=== PATIENT | female | born 1985 | race Caucasian/White ===

== ENCOUNTER → 2017-02-03 | Outpatient (CLI) | payer BC ==
[~2017-02-03] MED LIST: CETICHW4 PO; OXYC5TAB PO; PRENTAB26 PO; THY/30 PO; THYR60TA10
== END | disposition home or self-care (01) ==
LOC: C.PAPS 10:35
PROVIDERS: ATTEND Obstetrics & Gynecology
DX: Z01.419 Encounter for gynecological examination (general) (routine) without abnormal findings (principal)

== ENCOUNTER 2024-09-03 11:55 | Inpatient (IN) ==
--- NOTE | 2024-09-03 12:35 | Emergency Department Note ---
ED Provider Note History of Present Illness Chief Complaint: Abdominal Pain Stated Complaint: ABD PAIN, FATIGUE Time Seen by Provider: 09/03/24 12:13 Source: patient Mode of arrival: ambulatory Limitations: no limitations Patient is a 38-year-old female who presents to the emergency department with complaints of right sided abdominal pain. Patient states that she believes it may be muscular but also notes that she has had some intermittent nausea this morning and has not had a bowel movement since last night. Patient notes that the pain is in her right upper quadrant and radiates down into her right lower quadrant. Patient denies any history of kidney stones and denies any urinary symptoms. Home Medications Medication Instructions Recorded Confirmed Type cetirizine 10 mg tablet (Zyrtec) 10 mg PO PM 06/10/19 09/03/24 History levonorgestrel 21 mcg/24 hr (up to 1 device intrauterine .USE 06/10/19 09/03/24 History 8 years) 52 mg intrauterine device DIRECTED. #1 ea lisinopril 30 mg tablet (Zestril) 5 mg PO PM 06/10/19 09/03/24 History duloxetine 20 mg capsule,delayed 60 mg PO QAM 08/01/19 09/03/24 History release (Cymbalta) CBD 25 mg PO PM 08/27/22 09/03/24 History lifitegrast [Xiidra] 1 drp ophthalmic (eye) BID 08/27/22 09/03/24 History loteprednol etabonate [Eysuvis] 1 drp ophthalmic (eye) BID 08/27/22 09/03/24 History omega-3 acid ethyl esters 2,500 mg PO QAM 08/27/22 09/03/24 History dextroamphetamine-amphetamine ER 37.5 mg PO QAM 05/18/24 09/03/24 History 37.5 mg capsule, 3 bead, ext rel 24hr (Mydayis) Allergies Allergy/AdvReac Type Severity Reaction Status Date / Time hydrochlorothiazide AdvReac Intermediate Photosensit Verified 09/04/24 16:50 ivity SUSHI Allergy Mild RASH Uncoded 09/04/24 14:09 Past Med/Surg History Problem List (Updated 09/04/24 @ 14:14 by Mikhail Mora MD) Encounter for pre-operative examination Right ureteral stone (Acute) Urinary tract infection Hydronephrosis with obstructing calculus (Acute) Pelvic pressure in female IUD strings lost Breast discharge Hirsutism Depression Hypothyroidism IUD (intrauterine device) in place Mirena 04/2019 Hypertension Medical History Varicella Abnormal uterine bleeding Surgical History H/O oral surgery H/O section Previous delivery affecting Family History Father Alcoholism Grandmother (Maternal) Diabetes Grandfather (Paternal) Cancer Grandmother (Paternal) Cancer Grandfather (Maternal) Cancer Uncle Cancer Colorectal cancer Denies family history of Ovarian cancer Prostate cancer Myocardial infarction Breast cancer Social History Smoking Status: Never smoker Do You Dip or Chew Tobacco: No; Hx Alcohol Use: Yes Alcohol type: wine and hard liquor Hx Substance Use: No Preferred Language: Citizen Of [place] Communication Ability: Effective [employer] Required: No Beliefs That Will Affect Care: None marital status: Current Living Situation: Spouse and Family Current Living Situation Comment: and children Other Information That Helps Us Care for You: No Feels Safe at Home: Yes Safety Concerns: Feels Safe At This Time Sunscreen Use: Yes Assistive Devices: None Physical Exam Vital Signs Vital Signs - 24 hr 09/03/24 11:56 09/03/24 12:07 09/03/24 12:32 Temperature 36.6 C Temperature Source Temporal Artery Scan Pulse Rate 94 H Pulse Rate [Left Finger] Pulse Rate from SpO2 Sensor Pulse Rhythm [Left Finger] Pulse Strength [Left Finger] Respiratory Rate 20 Respiratory Effort / Characteristics Non-Labored Respiratory Depth Normal Respiratory Pattern Blood Pressure 166/106 H Blood Pressure [Right Arm] Blood Pressure Mean 126 Blood Pressure Mean [Right Arm] Blood Pressure Position [Right Arm] Pulse Oximetry 96 96 97 Oxygen Delivery Method Room Air Room Air Room Air Sepsis Recent Fever Within 48 Hours No Sepsis New/Unexplained Change in Mental Status No Sepsis Action Taken by Nursing No Action Required 09/03/24 13:00 09/03/24 13:56 09/03/24 14:00 Temperature Temperature Source Pulse Rate 84 86 Pulse Rate [Left Finger] 82 Pulse Rate from SpO2 Sensor 89 Pulse Rhythm [Left Finger] Regular Pulse Strength [Left Finger] Normal Respiratory Rate 17 15 Respiratory Effort / Characteristics Non-Labored Spontaneous Respiratory Depth Normal Respiratory Pattern Regular Blood Pressure 171/109 H Blood Pressure [Right Arm] 134/99 Blood Pressure Mean 129 Blood Pressure Mean [Right Arm] 110 Blood Pressure Position [Right Arm] Lying Pulse Oximetry 98 98 Oxygen Delivery Method Room Air Sepsis Recent Fever Within 48 Hours Sepsis New/Unexplained Change in Mental Status Sepsis Action Taken by Nursing 09/03/24 14:30 09/03/24 15:00 09/03/24 16:06 Temperature Temperature Source Pulse Rate 85 92 H 93 H Pulse Rate [Left Finger] Pulse Rate from SpO2 Sensor 85 91 H 96 H Pulse Rhythm [Left Finger] Pulse Strength [Left Finger] Respiratory Rate 19 21 18 Respiratory Effort / Characteristics Respiratory Depth Respiratory Pattern Blood Pressure 168/102 H 154/111 H 162/108 H Blood Pressure [Right Arm] Blood Pressure Mean 124 125 126 Blood Pressure Mean [Right Arm] Blood Pressure Position [Right Arm] Pulse Oximetry 97 97 98 Oxygen Delivery Method Sepsis Recent Fever Within 48 Hours Sepsis New/Unexplained Change in Mental Status Sepsis Action Taken by Nursing 09/03/24 16:27 09/03/24 17:00 Temperature Temperature Source Pulse Rate 90 84 Pulse Rate [Left Finger] Pulse Rate from SpO2 Sensor 90 86 Pulse Rhythm [Left Finger] Pulse Strength [Left Finger] Respiratory Rate 19 13 Respiratory Effort / Characteristics Respiratory Depth Respiratory Pattern Blood Pressure 169/111 H 155/101 H Blood Pressure [Right Arm] Blood Pressure Mean 130 119 Blood Pressure Mean [Right Arm] Blood Pressure Position [Right Arm] Pulse Oximetry 95 96 Oxygen Delivery Method Sepsis Recent Fever Within 48 Hours Sepsis New/Unexplained Change in Mental Status Sepsis Action Taken by Nursing VITAL SIGNS - Vital signs and nursing notes were reviewed. GENERAL -38-year-old female appearing her stated age who is in no acute distress. Communicates well with provider and answers questions appropriately. HEAD - NC/AT. EYES - PERRL with EOMI bilaterally. Conjunctiva pink and moist with no injection noted. LUNGS - Chest wall symmetric without accessory muscle use, intercostals retractions, or central cyanosis. Breath sounds clear throughout all ramos. No wheezes, rales, or rhonchi appreciated. CARDIAC - RRR with S1/S2. No murmur, rubs, or gallops appreciated. ABDOMEN - Abdominal contour without pulsations or visible masses. Negative Christopher's or Mullins Murillo's Signs. BS normoactive all four quadrants. Increased tenderness to palpation appreciated on the right side of the abdomen. No guarding. No rebound Tenderness. No palpable masses, hepatosplenomegaly, or ascites noted. NEUROLOGIC - Sensory intact to light touch throughout. PSYCH - A&Ox3 and cooperates fully with examiner. Pt is very pleasant and interacts well with examiner. Course Administered Medications Acetaminophen (Ofirmev) 1,000 mg in 100 mls @ 400 mls/hr IV Q8H PRN PRN Reason: Pain Stop: 09/06/24 17:44 Last Infusion: 09/04/24 16:43 Dose: Infused Documented By: Admin: 09/04/24 16:28 Dose: 400 mls/hr Documented By: Infusion: 09/04/24 05:18 Dose: Infused Documented By: Admin: 09/04/24 05:03 Dose: 400 mls/hr Documented By: Infusion: 09/03/24 21:17 Dose: Infused Documented By: Admin: 09/03/24 21:02 Dose: 400 mls/hr Documented By: TANESHA Ceftriaxone Sodium (Rocephin) 2,000 mg in 50 mls @ 100 mls/hr IV Q24H DIMAS Stop: 09/11/24 14:59 Last Admin: 09/04/24 16:36 Dose: Not Given Documented By: VIOLETA Sodium Chloride (Nss) 1,000 mls @ 80 mls/hr IV .[id number] [facility] Stop: 09/05/24 08:59 Last Admin: 09/04/24 09:35 Dose: 80 mls/hr Documented By: VIOLETA Ketorolac Tromethamine (Ketorolac Tromethamine 15 Mg/Ml Vial) 15 mg IV Q6H PRN PRN Reason: Pain Stop: 09/09/24 08:50 Last Admin: 09/04/24 11:43 Dose: 15 mg Documented By: VIOLETA Oxybutynin Chloride (Oxybutynin Chloride 5 Mg Tab) 5 mg PO BID PRN PRN Reason: ureteral spasm Stop: 10/04/24 20:59 Last Admin: 09/04/24 18:37 Dose: 5 mg Documented By: VIOLETA Discontinued Medications Diatrizoate Meglumine (Diatrizoate Meglumine 30% 100ml Vial) 20 ml INSTIL UD ONE Stop: 09/04/24 14:45 Last Admin: 09/04/24 15:04 Dose: 30 ml Documented By: RICHARD Fentanyl Citrate (Fentanyl Citrate Pf 100 Mcg/2 Ml Vial) 25 mcg IV Q5M PRN PRN Reason: PACU Use Only-Pain Stop: 09/04/24 22:22 Last Admin: 09/04/24 15:48 Dose: 25 mcg Documented By: Admin: 09/04/24 15:43 Dose: 25 mcg Documented By: Admin: 09/04/24 15:38 Dose: 25 mcg Documented By: Admin: 09/04/24 15:33 Dose: 25 mcg Documented By: CLAUDIO Acetaminophen (Ofirmev) 1,000 mg in 100 mls @ 400 mls/hr IV NOW STA Stop: 09/03/24 12:46 Last Infusion: 09/03/24 13:19 Dose: Infused Documented By: Admin: 09/03/24 12:40 Dose: 400 mls/hr Documented By: YESSI Ceftriaxone Sodium (Rocephin) 2,000 mg in 50 mls @ 100 mls/hr IV NOW STA Stop: 09/03/24 16:10 Last Infusion: 09/03/24 17:14 Dose: Infused Documented By: Admin: 09/03/24 16:02 Dose: 100 mls/hr Documented By: YESSI Ioversol (Optiray 320 100ml) 94 ml IV ONCE ONE Stop: 09/03/24 13:48 Last Admin: 09/03/24 13:48 Dose: 94 ml Documented By: JLUIS Morphine Sulfate (Morphine Sulfate 4 Mg/Ml 1 Ml Carp\Vial) 4 mg IV NOW STA Stop: 09/03/24 15:19 Last Admin: 09/03/24 15:32 Dose: 4 mg Documented By: YESSI Ondansetron HCl (Ondansetron Inj 2 Mg/Ml 2 Ml Vial) 4 mg IV NOW STA Stop: 09/03/24 15:19 Last Admin: 09/03/24 15:32 Dose: 4 mg Documented By: YESSI Medical Decision Making Differential Diagnosis Differential diagnoses includes gastritis, gastroenteritis, IBS, small bowel obstruction, pancreatitis, peritonitis, constipation, abdominal abcess, among others. Medical Records Attestation: I reviewed the patient's medical records. Home Medications was personally reviewed by mo Laboratory Data 09/04/24 08:52 09/04/24 08:52 Lab Results 09/03/24 09/03/24 Range/Units 12:25 12:38 WBC 12.54 H (4.8-10.8) K/ul RBC 5.07 (4.20-5.40) M/uL Hgb 15.3 (12.0-16.0) g/dl Hct 44.2 (37.0-47.0) % MCV 87.2 (80.0-100.0) fL MCH 30.2 (25.0-34.0) pg MCHC 34.6 (32.0-36.0) g/dL RDW Std Deviation 40.1 (36.4-46.3) fL RDW Coeff of [place] 12.9 (11.5-14.5) % Plt Count 244 (130-400) K/uL MPV 10.7 (9.4-12.4) fL Immature Gran % (Auto) 0.2 % Neut % (Auto) 82.2 % Lymph % (Auto) 11.8 % [place] % (Auto) 4.9 % Eos % (Auto) 0.4 % Baso % (Auto) 0.5 % Neut # (Auto) 10.31 H (1.40-6.50) K/uL Lymph # (Auto) 1.48 (1.20-3.40) K/uL Winston # (Auto) 0.61 H (0.11-0.59) K/uL Eos # (Auto) 0.05 (0.00-0.50) K/uL Baso # (Auto) 0.06 (0.00-0.20) K/uL Immature Gran # (Auto) 0.03 (0.01-0.20) K/uL Sodium 137 (136-145) mmol/L Potassium 4.2 (3.5-5.1) mmol/L Chloride 105 (98-107) mmol/L Carbon Dioxide 25 (21-32) mmol/L Anion Gap 7 (3-11) BUN 12 (6-23) mg/dl Creatinine 0.80 (0.6-1.2) mg/dl Est Cr Clr Drug Dosing 116.3 ml/min eGFR 95.46 BUN/Creatinine Ratio 15.0 (10-20) Glucose 143 H (70-99(Fasting)) mg/dl Calcium 9.4 (8.6-10.3) mg/dl Total Bilirubin 0.5 (0.2-1.0) mg/dl AST 18 (13-39) U/L ALT 14 (7-52) U/L Alkaline Phosphatase 81 (34-104) U/L Total Protein 7.4 (6.0-8.3) gm/dl Albumin 4.6 (3.4-5.0) gm/dl Globulin 2.8 (2.5-4.0) gm/dl Albumin/Globulin Ratio 1.6 (0.9-2) Lipase 16 (11-82) U/L HCG, Qual Negative (Negative) Urine Color Yellow Urine Appearance Cloudy A (Clear) Urine pH 7.5 (4.5-7.5) Ur Specific [place] 1.011 (1.000-1.030) Urine Protein 3+ H (Negative) Urine Glucose (UA) Negative (Negative) Urine Ketones Negative (Negative) Urine Blood 3+ H (Negative) Urine Nitrite Negative (Negative) Urine Bilirubin Negative (Negative) Urine Urobilinogen Negative (Negative) Ur Leukocyte Esterase 3+ H (Negative) Urine WBC (Auto) >50 H (0-5) /hpf Urine RBC (Auto) >20 H (0-2) /hpf U Hyaline Cast (Auto) 3-5 H (0-2) /lpf U Epithel Cells (Auto) 0-2 (0-2) /hpf Urine Bacteria (Auto) 1+ H (None Seen) Urine Mucus Present A (None Prsent) Imaging Data Radiologist's Impression: Abdomen/Pelvis CT 09/03/24 12:32 CT OF THE ABDOMEN AND PELVIS WITH CONTRAST CLINICAL HISTORY: Right-sided abdominal pain. COMPARISON STUDY: Pelvic ultrasound May 21, 2024. TECHNIQUE: Following IV administration of 94 mL of Optiray, axial images of the abdomen and pelvis were obtained from the lung bases to the proximal femurs. Images were reviewed in the axial, sagittal, and coronal planes. IV contrast was administered without complication. Automated exposure control was utilized for the study. A dose lowering technique was utilized adhering to the principles of ALARA. CT DOSE: 1447.29 mGy.cm FINDINGS: Lung bases are unremarkable. No pneumatosis, free air or portal venous gas is present. Liver, spleen, adrenal glands and pancreas are unremarkable. There is no evidence for a bowel obstruction. The appendix is normal. Intrauterine device is in place. There is a 2.4 cm left ovarian cyst. Severe right hydronephrosis and moderate hydroureter is due to a 1.3 cm distal right ureteral calculus just below the level of the SI joint. There is marked right calyceal dilatation with renal cortical thinning. There is mild urothelial thickening with mild right perinephric stranding. Sensitivity for detection of left renal calculus diminished given excreted contrast. There are no bladder calculi. IMPRESSION: Severe right hydronephrosis and moderate hydroureter due to a 1.3 cm distal right ureteral calculus, as described above. Given marked right calyceal dilatation and significant cortical thinning, the findings may reflect an acute on chronic process. Urothelial thickening raises the possibility of a superimposed infectious process which could be correlated with urinalysis. ACT 112: Negative or not required by law. Electronically signed by: Gonsalo Jones M.D. 09/03/2024 2:36 PM MDM Narrative Patient is a 38-year-old female who presents to the emergency department with complaints of right sided abdominal pain. Patient states that she believes it may be muscular but also notes that she has had some intermittent nausea this morning and has not had a bowel movement since last night. Patient notes that the pain is in her right upper quadrant and radiates down into her right lower quadrant. Patient denies any history of kidney stones and denies any urinary symptoms. Patient was evaluated by myself and findings were noted in the physical exam above. Patient was ordered IV placement, lab work, urinalysis, and a CT of the abdomen pelvis. Patient was also ordered IV Tylenol for her discomfort. Patient's lab work resulted with an elevated white blood cell count of 12.54. Patient did have kidney function within normal limits with a BUN of 12 and a creatinine of 0.8. The rest of the patient's lab work was unremarkable. Patient's urinalysis however was indicative of infection patient had a 3+ protein, 3+ blood, 3+ leuks and positive bacteria in her urine. Upon reevaluation the patient states that her pain had improved with the IV Tylenol and denies any further pain medication at this time. Patient's CT of the abdomen and pelvis was interpreted by radiology to show similar severe right hydronephrosis and moderate hydroureter due to a 1.3 cm distal right ureteral calculus. I discussed these findings with the patient and the patient verbalized understanding. Patient states that she is still relatively comfortable and denies any significant pain or nausea at this time. I reached out to urology with these findings because of the patient's mild elevation in her white blood cell count and infected urine, as well as the size of the kidney stone. Urology agreed that the patient would likely need stent placement and possible procedure to help with removal or passing of the stone, however they were concerned that the patient may need to be on IV antibiotics for a day or so before they take her to the OR and suggested that the medical service be consulted for admission. I reached out to the [facility] to admit the patient to their service. I gave a report on the patient's chief complaint, current status, current vitals and all of her lab and imaging results. [facility] was agreeable to admit the patient inpatient under their service with consulting urology. Please refer to [facility] documentation for further evaluation and management of this patient. Impression Hydronephrosis with obstructing calculus, Right ureteral stone Discharge Plan Visit Data Chief Complaint: Abdominal Pain Stated Complaint: ABD PAIN, FATIGUE ED Provider: Jessica Morrissey ED Midlevel Provider: Lily Jennings Discharge Problem: Hydronephrosis with obstructing calculus, Right ureteral stone Patient Disposition: Admitted As Inpatient Discharge Instructions Interventions: ED Discharge Assessment Last Done: 09/03/24 17:16
[2024-09-03] MEDS: ACETAMINOPHEN 1,000 MG/100 ML VIAL IV STA (12:40)
[2024-09-03 13:15] LABS: Basophils # (auto) 0.06 K/uL (0.00-0.20); Basophils % (auto) 0.5 %; Eosinophils # (auto) 0.05 K/uL (0.00-0.50); Eosinophils % (auto) 0.4 %; Hematocrit (blood only) 44.2 % (37.0-47.0); Hemoglobin 15.3 g/dl (12.0-16.0); Immature Granulocytes # (auto) 0.03 K/uL (0.01-0.20); Immature Granulocytes % (auto) 0.2 %; Lymphocytes # (auto) 1.48 K/uL (1.20-3.40); Lymphocytes % (auto) 11.8 %; Mean Corpuscular Hemoglobin 30.2 pg (25.0-34.0); Mean Corpuscular Hgb Conc 34.6 g/dL (32.0-36.0); Mean Corpuscular Volume 87.2 fL (80.0-100.0); Mean Platelet Volume 10.7 fL (9.4-12.4); Monocytes # (auto) 0.61 K/uL (0.11-0.59); Monocytes % (auto) 4.9 %; Neutrophils # (auto) 10.31 K/uL (1.40-6.50); Neutrophils % (auto) 82.2 %; Platelet Count 244 K/uL (130-400); RDW Coefficient of Variation 12.9 % (11.5-14.5); RDW Standard Deviation 40.1 fL (36.4-46.3); Red Blood Count 5.07 M/uL (4.20-5.40); White Blood Count 12.54 K/ul (4.8-10.8)
[2024-09-03 13:21] LABS: Appearance Urine Cloudy (Clear); Bacteria Urine Automated 1+ (None Seen); Bilirubin Urine Negative (Negative); Blood Urine 3+ (Negative); Color Urine Yellow; Epithelial Cell Urine Auto 0-2 /hpf (0-2); Glucose Urine UA Negative (Negative); Ketones Urine Negative (Negative); Leukocyte Esterase Urine 3+ (Negative); Mucus Urine Present (None Prsent); Nitrite Urine Negative (Negative); Protein Urine 3+ (Negative); RBC Urine Automated >20 /hpf (0-2); Specific Gravity Urine 1.011 (1.000-1.030); Urobilinogen Urine Negative (Negative); WBC Urine Automated >50 /hpf (0-5); pH Urine 7.5 (4.5-7.5)
[2024-09-03 13:25] LABS: Pregnancy Test, Serum Negative (Negative)
[2024-09-03 13:36] LABS: Albumin Globulin Ratio 1.6 (0.9-2); Albumin Level 4.6 gm/dl (3.4-5.0); Bilirubin,Total 0.5 mg/dl (0.2-1.0); Calcium 9.4 mg/dl (8.6-10.3); Creatinine Clr Calc Pharmacy 116.3 ml/min; Globulin 2.8 gm/dl (2.5-4.0); Potassium 4.2 mmol/L (3.5-5.1); Total Protein 7.4 gm/dl (6.0-8.3)
[2024-09-03] MEDS: OPTIRAY 320 100ml IV ONE (13:48)
--- NOTE | 2024-09-03 14:38 | CT Scan Report ---
CT OF THE ABDOMEN AND PELVIS WITH CONTRAST CLINICAL HISTORY: Right-sided abdominal pain. COMPARISON STUDY: Pelvic ultrasound May 21, 2024. TECHNIQUE: Following IV administration of 94 mL of Optiray, axial images of the abdomen and pelvis we re obtained from the lung bases to the proximal femurs. Images were reviewed in the axial, sagittal, and coronal planes. IV contrast was administered without complication. Automated exposure control wa s utilized for the study. A dose lowering technique was utilized adhering to the principles of ALARA . CT DOSE: 1447.29 mGy.cm FINDINGS: Lung bases are unremarkable. No pneumatosis, free air or portal venous gas is present. Live r, spleen, adrenal glands and pancreas are unremarkable. There is no evidence for a bowel obstruction . The appendix is normal. Intrauterine device is in place. There is a 2.4 cm left ovarian cyst. Sever e right hydronephrosis and moderate hydroureter is due to a 1.3 cm distal right ureteral calculus jus t below the level of the SI joint. There is marked right calyceal dilatation with renal cortical thin julia. There is mild urothelial thickening with mild right perinephric stranding. Sensitivity for dete ction of left renal calculus diminished given excreted contrast. There are no bladder calculi. IMPRESSION: Severe right hydronephrosis and moderate hydroureter due to a 1.3 cm distal right ureter al calculus, as described above. Given marked right calyceal dilatation and significant cortical thin julia, the findings may reflect an acute on chronic process. Urothelial thickening raises the possibil ity of a superimposed infectious process which could be correlated with urinalysis. ACT 112: Negative or not required by law. Electronically signed by: Gonsalo Jones M.D. 09/03/2024 2:36 PM
[2024-09-03] MEDS: MoRPHine SULFATE 4 MG/ML 1 ML CARP\\VIAL IV STA (15:32)
[2024-09-03] MEDS: ONDANSETRON INJ 2 MG/ML 2 ML VIAL IV STA (15:32)
[2024-09-03] MEDS ORDERED: cefTRIAXone SODIUM 1,000 MG/50 ML BAG IV STA (15:36)
--- NOTE | 2024-09-03 15:45 | History & Physical Report ---
Date of Service September 03, 2024 Assessment & Plan (1) Hydronephrosis with obstructing calculus: Plan: New onset right sided abdominal pain, no LUTS - Admit - H/o renal calculi, asx - CTAP severe right hydronephrosis and moderate hydroureter due to 1.3 cm distal right ureteral calculus - UA w/ evidence of infection - Urology consulted in ED- Plans for stenting Appreciate urology input and recs (2) Urinary tract infection: Plan: No LUTS or dysuria, just noted that her urine was darker than normal this a.m. - UA cloudy, 3+ protein, 3+ blood, 3+ LE, WBC, RBC, hyaline cast, presence of bacteria, and mucus - CTAP revealing severe right hydronephrosis and moderate hydroureter due to 1.3 cm distal right ureteral calculus, findings may reflect acute on chronic process, urothelial thickening - Pending cx - Ceftriaxone 2g IV - continue - Zofran 4mg IV q6hr - Acetaminophen 1g IV prn once NPO (3) Hypertension: Plan: Hypertensive on arrival, elevation in BP likely secondary to pain - Lisinopril 30 mg; ? takes 5mg po - HOLD (4) Hypothyroidism: Plan: Stable per patient, no new onset of symptoms - Most recent TSH 01/02/2024 at 4.588 - Not on medical management - Recommend pt follow up outpatient regarding this (5) Depression: Plan: Stable per patient - Duloxetine 20 mg p.o. twice daily Plan Attention D/o - Dextroamphetamine-Amphetamine 37.5mg po qAM Dispo: Admit Diet: Regular, NPO at midnight VTE Prophylaxis: SCDs Code: Full Admission and Anticipated Discharge Date Admission Date: 09/03/2024 History of Present Illness Chief Complaint: Right-sided abdominal pain Primary Care Provider: Jerome Jeffrey MD 38-year-old female presenting for right-sided abdominal pain. ED course: CBC- WBC 12.54, neutrophil predominant (10.31); BMP glucose 143; hCG negative; UA cloudy, 3+ protein, 3+ blood, 3+ LE, presence of WBC, RBC, hyaline cast, 1+ bacteria, mucus; CTAP severe right hydronephrosis and moderate hydroureter due to 1.3 cm distal right ureteral calculus, right calyceal dilatation and significant cortical thinning (findings may reflect acute on chronic process), urothelial thickening raises possibility of superimposed infectious process.; Provided with Zofran, morphine, Rocephin, Tylenol in ED. Patient is a 38-year-old female PMHx HTN, hypothyroidism, and depression presenting for right-sided abdominal pain. States that the night prior to arrival she had had a large meal and had associated abdominal pain and fullness following this. Abdominal fullness started to subside, she noticed increased thirst and lingering right-sided abdominal pain. States that she woke up multiple times throughout the night that have drinks of water. However, in the morning she noted that her urine was darker than she expected since she had been drinking so much water. Initially, the pain started out as a 5/10 on the pain scale but had increased to 8/10 at maximum severity. Denies nausea/vomiting or LUTS. No fever/chills. States that she has had a renal calculi in the past, but did not know until after it was passed. Has never this happen before. Pain is currently 0/10 on the pain scale after administration of pain medications. Took all a.m. medications. Please see Dr. Soto's attestation for adjustments/additions to treatment plan. Allergies Allergy/AdvReac Type Severity Reaction Status Date / Time SUSHI Allergy Mild RASH Uncoded 05/18/24 13:04 hydroCHLOROthiazide CAPS Allergy Unknown Photosensit Uncoded 05/18/24 13:04 ivity Home Medications Medication Instructions Recorded Confirmed Type cetirizine 10 mg tablet (Zyrtec) 10 mg PO PM 06/10/19 09/03/24 History levonorgestrel 21 mcg/24 hr (up to 1 device intrauterine .USE 06/10/19 09/03/24 History 8 years) 52 mg intrauterine device DIRECTED. #1 ea lisinopril 30 mg tablet (Zestril) 5 mg PO PM 06/10/19 09/03/24 History duloxetine 20 mg capsule,delayed 60 mg PO QAM 08/01/19 09/03/24 History release (Cymbalta) CBD 25 mg PO PM 08/27/22 09/03/24 History lifitegrast [Xiidra] 1 drp ophthalmic (eye) BID 08/27/22 09/03/24 History loteprednol etabonate [Eysuvis] 1 drp ophthalmic (eye) BID 08/27/22 09/03/24 History omega-3 acid ethyl esters 2,500 mg PO QAM 08/27/22 09/03/24 History dextroamphetamine-amphetamine ER 37.5 mg PO QAM 05/18/24 09/03/24 History 37.5 mg capsule, 3 bead, ext rel 24hr (Mydayis) Past Med/Surg History Problem List Right ureteral stone Urinary tract infection Hydronephrosis with obstructing calculus Pelvic pressure in female IUD strings lost Breast discharge Hirsutism Depression Hypothyroidism IUD (intrauterine device) in place Mirena 04/2019 Hypertension Medical History Varicella Abnormal uterine bleeding Surgical History H/O oral surgery H/O section Previous delivery affecting Family History Father Alcoholism Grandmother (Maternal) Diabetes Grandfather (Paternal) Cancer Grandmother (Paternal) Cancer Grandfather (Maternal) Cancer Uncle Cancer Colorectal cancer Denies family history of Ovarian cancer Prostate cancer Myocardial infarction Breast cancer Social History Smoking Status: Never smoker Do You Dip or Chew Tobacco: No; Hx Substance Use: No Preferred Language: Thai Communication Ability: Effective marital status: Current Living Situation: Spouse Feels Safe at Home: Yes Sunscreen Use: Yes Review of Systems Review of Systems: All systems reviewed & are unremarkable except as noted in Subjective Physical Exam Physical Exam: General: No acute distress Skin: Warm and dry Head: Normocephalic, atraumatic Eyes: PERRL, conjunctivae clear, sclera non-icteric ENT: External ear and ear canal without swelling; nose atraumatic; good dentition Neck: Supple, no LAD Cardio: RRR, no M/G/R, S1 and S2 normal Resp: No respiratory distress, Lungs CTA in all lobes bilaterally, no wheezes, rales, or rhonchi Abdomen: Soft, symmetric, nontender; No masses or hepatosplenomegaly MSK: No deformities, full ROM throughout; pulses palpable and equal; no edema. Neuro: Awake, alert; Sensation intact bilaterally; CN intact Psych: Appropriate mood and affect; good judgement and insight. Mother present in room at time of visit. Results & Data Results & Data Vital Signs (Past 12 Hours) Vital Signs Temp Pulse Pulse Resp BP BP Pulse Ox 09/03/24 14:30 85 19 168/102 H 97 09/03/24 14:00 86 15 171/109 H 98 09/03/24 13:56 84 09/03/24 13:00 82 17 134/99 98 09/03/24 12:32 97 09/03/24 12:07 36.6 C 94 H 20 166/106 H 96 09/03/24 11:56 96 O2 Del Method 09/03/24 14:30 09/03/24 14:00 09/03/24 13:56 09/03/24 13:00 Room Air 09/03/24 12:32 Room Air 09/03/24 12:07 Room Air 09/03/24 11:56 Room Air Laboratory Results 09/03/24 12:25 Urine Culture - Pending Urine,Clean Catch 09/03/24 09/03/24 12:38 12:25 WBC 12.54 H RBC 5.07 Hgb 15.3 Hct 44.2 MCV 87.2 MCH 30.2 MCHC 34.6 RDW Std Deviation 40.1 RDW Coeff of [place] 12.9 Plt Count 244 MPV 10.7 Immature Gran % (Auto) 0.2 Neut % (Auto) 82.2 Lymph % (Auto) 11.8 [place] % (Auto) 4.9 Eos % (Auto) 0.4 Baso % (Auto) 0.5 Neut # (Auto) 10.31 H Lymph # (Auto) 1.48 [place] # (Auto) 0.61 H Eos # (Auto) 0.05 Baso # (Auto) 0.06 Immature Gran # (Auto) 0.03 Sodium 137 Potassium 4.2 Chloride 105 Carbon Dioxide 25 Anion Gap 7 BUN 12 Creatinine 0.80 Est Cr Clr Drug Dosing 116.3 eGFR 95.46 BUN/Creatinine Ratio 15.0 Glucose 143 H Calcium 9.4 Total Bilirubin 0.5 AST 18 ALT 14 Alkaline Phosphatase 81 Total Protein 7.4 Albumin 4.6 Globulin 2.8 Albumin/Globulin Ratio 1.6 Lipase 16 HCG, Qual Negative Urine Color Yellow Urine Appearance Cloudy A Urine pH 7.5 Ur Specific [place] 1.011 Urine Protein 3+ H Urine Glucose (UA) Negative Urine Ketones Negative Urine Blood 3+ H Urine Nitrite Negative Urine Bilirubin Negative Urine Urobilinogen Negative Ur Leukocyte Esterase 3+ H Urine WBC (Auto) >50 H Urine RBC (Auto) >20 H U Hyaline Cast (Auto) 3-5 H U Epithel Cells (Auto) 0-2 Urine Bacteria (Auto) 1+ H Urine Mucus Present A Diagnostic Findings Abdomen/Pelvis CT 09/03/24 12:32 CT OF THE ABDOMEN AND PELVIS WITH CONTRAST CLINICAL HISTORY: Right-sided abdominal pain. COMPARISON STUDY: Pelvic ultrasound May 21, 2024. TECHNIQUE: Following IV administration of 94 mL of Optiray, axial images of the abdomen and pelvis were obtained from the lung bases to the proximal femurs. Images were reviewed in the axial, sagittal, and coronal planes. IV contrast was administered without complication. Automated exposure control was utilized for the study. A dose lowering technique was utilized adhering to the principles of ALARA. CT DOSE: 1447.29 mGy.cm FINDINGS: Lung bases are unremarkable. No pneumatosis, free air or portal venous gas is present. Liver, spleen, adrenal glands and pancreas are unremarkable. There is no evidence for a bowel obstruction. The appendix is normal. Intrauterine device is in place. There is a 2.4 cm left ovarian cyst. Severe right hydronephrosis and moderate hydroureter is due to a 1.3 cm distal right ureteral calculus just below the level of the SI joint. There is marked right calyceal dilatation with renal cortical thinning. There is mild urothelial thickening with mild right perinephric stranding. Sensitivity for detection of left renal calculus diminished given excreted contrast. There are no bladder calculi. IMPRESSION: Severe right hydronephrosis and moderate hydroureter due to a 1.3 cm distal right ureteral calculus, as described above. Given marked right calyceal dilatation and significant cortical thinning, the findings may reflect an acute on chronic process. Urothelial thickening raises the possibility of a superimposed infectious process which could be correlated with urinalysis. ACT 112: Negative or not required by law. Electronically signed by: Gonsalo Jones M.D. 09/03/2024 2:36 PM Code Status & VTE Plan Code Status Full Supervising Physician Co-Signing Physician Notes Patient seen and examined, chart reviewed, case discussed with Sherin Kahn PA-C and I agree with the assessment and plan as above except as otherwise noted Labs and images reviewed Yaneth is a 38-year-old female with a past medical history of depression, IUD placement, and renal stones who presents with right-sided abdominal pain and nausea, leukocytosis, infected appearing UA, and severe right hydronephrosis due to a 1.3 cm distal right ureteral calculus. Case was reviewed by urology and recommended for medical admission. UTIs infected appearing. Creatinine is 0.80, no KYLER is present. Rocephin is continued for stone associated UTI. Urology consulted for stone management and stent evaluation due to hydro. Follow UCx. Pain adequately controlled at bedside. Patient has history of hypothyroidism and depression, continue home medications for this. Lisinopril temporarily held pending surgical evaluation. Agree with above. PG Care Time/CCT Total # of Minutes Spent Total Time Spent with Patient: Total time spent is greater than 50% in coordination of care (as documented) at patient's floor/unit and/or counseling patient: Coding Level of Care Code 20403 INT INP/OBS CARE MIN Diagnoses Hydronephrosis with obstructing calculus N13.2 Urinary tract infection N39.0 Hypertension I10 Hypothyroidism E03.9 Depression F32.9 Time Spent (min) 50
--- NOTE | 2024-09-03 15:49 | Urology Consultation ---
Date of Consultation September 03, 2024 Assessment & Plan (1) Hydronephrosis with obstructing calculus: (2) Right ureteral stone: (3) Urinary tract infection: Plan 38 yo female admitted with concern for infection and severe right hydronephrosis secondary to an obstructing stone We reviewed her CT findings, specifically severe right hydronephrosis and moderate hydroureter due to a 1.3 cm distal right ureteral calculus with marked right calyceal dilatation and significant cortical thinning, the findings may reflect an acute on chronic process. We discussed acute stone management with cystoscopy and stent placement. Ureteral stents were discussed as well as postoperative issues and pain management. We discussed the possibility of multiple procedures. Risks and benefits of each were discussed. All questions were answered. At the present time, she is stable She is not appropriately NPO. No plan for intervention tonight unless she were to become febrile or unstable. Will plan to make NPO at midnight and reassess tomorrow for possible stent placement. Recommend supportive care and antibiotic therapy. Urology to follow. Plan reviewed with Dr. Silveira, on-call urologist. History of Present Illness History of Present Illness 38-year-old female who presented to the emergency department today with complaints of right sided abdominal pain and nausea. On arrival she was af ebrile, hypertensive but otherwise stable. Labs showing a mild leukocytosis of 12.54 and normal renal function. Urinalysis with 3+ blood, 3+ LE, 1+ bacteria, negative nitrite, mucus present. Urine culture pending. CT abdomen pelvis notable for severe right hydronephrosis and moderate hydroureter due to a 1.3 cm distal right ureteral calculus and marked right calyceal dilatation and significant cortical thinning which may reflect an acute on chronic process. ED course: Morphine, Zofran, Tylenol, ceftriaxone. Patient being admitted to medicine service. CT abd pelvis- Severe right hydronephrosis and moderate hydroureter due to a 1.3 cm distal right ureteral calculus, as described above. Given marked right calyceal dilatation and significant cortical thinning, the findings may reflect an acute on chronic process. Urothelial thickening raises the possibility of a superimposed infectious process which could be correlated with urinalysis. Patient seen at bedside in the ED. Awake and resting in bed on arrival. No acute distress. She reports a hx of spontaneous stone passage. Pt had orange juice this morning around 1130AM. Allergies Allergy/AdvReac Type Severity Reaction Status Date / Time SUSHI Allergy Mild RASH Uncoded 05/18/24 13:04 hydroCHLOROthiazide CAPS Allergy Unknown Photosensit Uncoded 05/18/24 13:04 ivity Home Medications Medication Instructions Recorded Confirmed Type cetirizine 10 mg tablet PO 06/10/19 05/18/24 History levonorgestrel 21 mcg/24 hr (up to intrauterine .USE DIRECTED. #1 06/10/19 05/18/24 History 8 years) 52 mg intrauterine device ea lisinopril 30 mg tablet PO 06/10/19 05/18/24 History duloxetine 20 mg capsule,delayed 20 mg PO BID 08/01/19 05/18/24 History release (Cymbalta) CBD PO 08/27/22 05/18/24 History lifitegrast [Xiidra] ophthalmic (eye) 08/27/22 05/18/24 History loteprednol etabonate [Eysuvis] ophthalmic (eye) 08/27/22 05/18/24 History omega-3 acid ethyl esters PO 08/27/22 05/18/24 History dextroamphetamine-amphetamine ER 37.5 mg PO DAILY 05/18/24 05/18/24 History 37.5 mg capsule, 3 bead, ext rel 24hr (Mydayis) Patient History Medical History Varicella Abnormal uterine bleeding Surgical History H/O oral surgery H/O section Previous delivery affecting Family History Father Alcoholism Grandmother (Maternal) Diabetes Grandfather (Paternal) Cancer Grandmother (Paternal) Cancer Grandfather (Maternal) Cancer Uncle Cancer Colorectal cancer Denies family history of Ovarian cancer Prostate cancer Myocardial infarction Breast cancer Social History Smoking Status: Never smoker Do You Dip or Chew Tobacco: No; Hx Substance Use: No Preferred Language: Icelandic Communication Ability: Effective marital status: Current Living Situation: Spouse Feels Safe at Home: Yes Sunscreen Use: Yes Review of Systems Review of Systems: All systems reviewed & are unremarkable except as noted in HPI & below Physical Exam Constitutional: well developed and well nourished; no acute distress Respiratory: normal respiratory effort; no respiratory distress and no labored breathing Musculoskeletal: Head/Neck/Chest: normocephalic Skin: No visible rashes or lesions to exposed skin areas Neurologic: moves all extremities and awake Psychiatric: A+Ox3, euthymic affect Results & Data Vital Signs (Past 12 Hours) Vital Signs Temp Pulse Pulse Resp BP BP Pulse Ox 09/03/24 14:30 85 19 168/102 H 97 09/03/24 14:00 86 15 171/109 H 98 09/03/24 13:56 84 09/03/24 13:00 82 17 134/99 98 09/03/24 12:32 97 09/03/24 12:07 36.6 C 94 H 20 166/106 H 96 09/03/24 11:56 96 O2 Del Method 09/03/24 14:30 09/03/24 14:00 09/03/24 13:56 09/03/24 13:00 Room Air 09/03/24 12:32 Room Air 09/03/24 12:07 Room Air 09/03/24 11:56 Room Air PG Care Time/CCT Total # of Minutes Spent Total Time Spent with Patient: Total time spent is greater than 50% in coordination of care (as documented) at patient's floor/unit and/or counseling patient: Coding Level of Care Code 09730 IN/OBS CONSULT LVL 3,45M Diagnoses Hydronephrosis with obstructing calculus N13.2 Right ureteral stone N20.1 Urinary tract infection N39.0
[2024-09-03] MEDS: cefTRIAXone SODIUM 2,000 MG/50 ML BAG IV STA (16:02)
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
[2024-09-03] MEDS: ACETAMINOPHEN 1,000 MG/100 ML VIAL IV PRN (21:02)
--- NOTE | 2024-09-04 08:50 | Hospitalist Progress Note ---
Date of Service September 04, 2024 Assessment & Plan (1) Hydronephrosis with obstructing calculus: Plan: New onset right sided abdominal pain, no LUTS - Admit - H/o renal calculi, asx - CTAP severe right hydronephrosis and moderate hydroureter due to 1.3 cm distal right ureteral calculus - UA w/ evidence of infection - Urology consulted in ED- Plans for stenting Appreciate urology input and recs 09/04 -- NSS @ 80cc/hr added while NPO -- Resumed Ceftriaxone IV daily, monitor urine cx -- Pain control: Tylenol IV, added Toradol IV if needed. Antiemetics w/ zofran prn added -- NPO for cysto this morning with urology Labs added to this morning but did not have KYLER, home lisinopril on hold for now, BP 162/89 (2) Urinary tract infection: Plan: Suspected 2nd to stone above, No LUTS or dysuria, just noted that her urine was darker than normal [employer] UA w/ 3+ blood/RBC, hyaline cast, protein and + bacteria CTAP revealing severe right hydronephrosis and moderate hydroureter due to 1.3 cm distal right ureteral calculus, findings may reflect acute on chronic process, urothelial thickening Given Ceftriaxone 2gm IV in ER on admission, CONTINUED/RESUMED --Monitor urine cx/adj abx as needed Pain control as above ?needing extended course abx for stone, will f/u with urology (3) Hypertension: Plan: Hypertensive on arrival, elevation in BP likely secondary to pain Stable and suspect elevation 2nd to pain and will monitor Home lisinopril on HOLD for now, monitor to resume pending repeat labs but notable no KYLER on admission (4) Hypothyroidism: Plan: Stable per patient, no new onset of symptoms - Most recent TSH 01/02/2024 at 4.588 - Not on medical management - Recommend pt follow up outpatient regarding this (5) Depression: Plan: Stable per patient Duloxetine 20 mg p.o. twice daily Plan Attention D/o - Dextroamphetamine-Amphetamine 37.5mg po qAM DVT proph: SCDs, ambulation encouraged for now. No DVT on exam Dispo: NPO for OR this morning with Urology, Ceftriaxone IV/NSS added as well as pain control and suspect either dc this evening vs more likely tomorrow (as discussed with patient) Admission and Anticipated Discharge Date Admission Date: September 03, 2024 Supervising Physician Co-Signing Physician Notes The patient was not seen by me. The chart was reviewed. Case discussed with DONIS Marques. Agree with assessment and plan Subjective Evaluated this morning, resting in bed. Comfortable at this time, pain to her RIGHT flank. Discussed tylenol but also added toradol if needed. IVF added while NPO, passing gas. Urinating without issue. No fever/chills, no chest pain, shortness of breath. For the OR for cystoscopy today, will monitor urine cx and likely dc in AM unless feeling great/wanting to leave this evening. Questions/concerns addressed at this time. Physical Exam 2 Physical Exam: General: 38yo female resting in bed,, slightly uncomfortable moving around in bed but NAD. HEENT: head atraumatic, normocephalic, mm slightly dry, trachea midline Resp: even/unlabored, no w/c/r, on room air 97% CV: RRR, no significant m/r/g, no pitting edema GI: +BS, soft/slight distension, nontender : +RIGHT CVA tenderness MSK/Neuro: nonfocal, answering questions appropriately, not confused Psych:AOX3, cooperative with exam Results & Data Results & Data Vital Signs (Past 12 Hours) Vital Signs Temp Pulse Resp BP Pulse Ox O2 Del Method 09/04/24 07:31 36.6 C 83 16 162/89 H 97 Room Air 09/03/24 21:34 37.2 C 104 H 18 161/90 H 97 Room Air Laboratory Results 09/03/24 12:38 09/03/24 12:38 Diagnostic Findings Abdomen/Pelvis CT 09/03/24 12:32 CT OF THE ABDOMEN AND PELVIS WITH CONTRAST CLINICAL HISTORY: Right-sided abdominal pain. COMPARISON STUDY: Pelvic ultrasound May 21, 2024. TECHNIQUE: Following IV administration of 94 mL of Optiray, axial images of the abdomen and pelvis were obtained from the lung bases to the proximal femurs. Images were reviewed in the axial, sagittal, and coronal planes. IV contrast was administered without complication. Automated exposure control was utilized for the study. A dose lowering technique was utilized adhering to the principles of ALARA. CT DOSE: 1447.29 mGy.cm FINDINGS: Lung bases are unremarkable. No pneumatosis, free air or portal venous gas is present. Liver, spleen, adrenal glands and pancreas are unremarkable. There is no evidence for a bowel obstruction. The appendix is normal. Intrauterine device is in place. There is a 2.4 cm left ovarian cyst. Severe right hydronephrosis and moderate hydroureter is due to a 1.3 cm distal right ureteral calculus just below the level of the SI joint. There is marked right calyceal dilatation with renal cortical thinning. There is mild urothelial thickening with mild right perinephric stranding. Sensitivity for detection of left renal calculus diminished given excreted contrast. There are no bladder calculi. IMPRESSION: Severe right hydronephrosis and moderate hydroureter due to a 1.3 cm distal right ureteral calculus, as described above. Given marked right calyceal dilatation and significant cortical thinning, the findings may reflect an acute on chronic process. Urothelial thickening raises the possibility of a superimposed infectious process which could be correlated with urinalysis. ACT 112: Negative or not required by law. Electronically signed by: Gonsalo Jones M.D. 09/03/2024 2:36 PM PG Care Time/CCT Total # of Minutes Spent Total Time Spent with Patient: Total time spent is greater than 50% in coordination of care (as documented) at patient's floor/unit and/or counseling patient: Coding Level of Care Code 57965 SUB INP/OBS CARE 3/50MIN Diagnoses Hydronephrosis with obstructing calculus N13.2 Urinary tract infection N39.0 Hypertension I10 Hypothyroidism E03.9 Depression F32.9
[2024-09-04] MEDS ORDERED: ONDANSETRON INJ 2 MG/ML 2 ML VIAL IV PRN (09:06)
[2024-09-04 09:21] LABS: Hematocrit (blood only) 41.6 % (37.0-47.0); Mean Corpuscular Hemoglobin 29.9 pg (25.0-34.0); Mean Corpuscular Hgb Conc 33.7 g/dL (32.0-36.0); Mean Corpuscular Volume 88.7 fL (80.0-100.0); Mean Platelet Volume 10.2 fL (9.4-12.4); Platelet Count 209 K/uL (130-400); RDW Coefficient of Variation 12.7 % (11.5-14.5); RDW Standard Deviation 41.1 fL (36.4-46.3); Red Blood Count 4.69 M/uL (4.20-5.40); White Blood Count 8.78 K/ul (4.8-10.8)
[2024-09-04] MEDS: SODIUM CHLORIDE 0.9% 1,000 ML IV SCH (09:35)
[2024-09-04 09:41] LABS: BUN Creatinine Ratio 15.7 (10-20); Calcium 8.9 mg/dl (8.6-10.3); Creatinine Clr Calc Pharmacy 97.9 ml/min; Potassium 4.2 mmol/L (3.5-5.1)
--- NOTE | 2024-09-04 10:19 | Urology Progress Note ---
Date of Service September 04, 2024 Assessment & Plan (1) Right ureteral stone: (2) Hydronephrosis with obstructing calculus: Plan 38 yo female admitted with concern for infection and severe right hydronephrosis secondary to an obstructing stone Afebrile, hypertensive otherwise stable vitals Labs today show no leukocytosis and normal renal function Urine culture pending We again reviewed her CT findings, specifically severe right hydronephrosis and moderate hydroureter due to a 1.3 cm distal right ureteral calculus with marked right calyceal dilatation and significant cortical thinning, the findings may reflect an acute on chronic process. We discussed acute stone management with cystoscopy and stent placement. Ureteral stents were discussed as well as postoperative issues and pain management. We discussed the possibility of multiple procedures. Risks and benefits of each were discussed. All questions were answered. Will plan to proceed to OR today for cystoscopy, right retrograde pyelogram, right ureteral stent placement, possible ureteroscopy, laser lithotripsy/stone treatment depending on findings with Dr. Valadez. Risks and benefits to be reviewed with patient by Dr. Valadez. Keep NPO. She is covered with scheduled IV ceftriaxone. Urology to follow. Admission and Anticipated Discharge Date Admission Date: September 03, 2024 Subjective Pt seen at bedside this AM Awake and resting in bed on arrival No acute distress Has been NPO Review of Systems Constitutional: as per Subjective / HPI Genitourinary: as per Subjective / HPI Physical Exam Constitutional: no acute distress Respiratory: no respiratory distress and no labored breathing Neurologic: moves all extremities and awake Psychiatric: A+Ox3, euthymic affect Results & Data Vital Signs (Past 12 Hours) Vital Signs Temp Pulse Resp BP Pulse Ox O2 Del Method 09/04/24 07:31 36.6 C 83 16 162/89 H 97 Room Air PG Care Time/CCT Total # of Minutes Spent Total Time Spent with Patient: Total time spent is greater than 50% in coordination of care (as documented) at patient's floor/unit and/or counseling patient: Coding Level of Care Code 51290 SUB INP/OBS CARE 2/35MIN Diagnoses Right ureteral stone N20.1 Hydronephrosis with obstructing calculus N13.2
[2024-09-04] MEDS: KETOROLAC TROMETHAMINE 15 MG/ML VIAL IV PRN (11:43)
[2024-09-04] MEDS ORDERED: PROPOFOL IV EMULSION 10 MG/ML 20 ML VIAL IV ONE (14:12)
[2024-09-04] MEDS ORDERED: fentaNYL citrate PF 100 MCG/2 ML VIAL ONE (14:12)
[2024-09-04] MEDS ORDERED: KETOROLAC 30 MG/ML VIAL ONE ×2 (14:12→15:02)
[2024-09-04] MEDS ORDERED: MIDAZOLAM HCL 1 MG/ML 2ML VIAL ONE (14:12)
[2024-09-04] MEDS ORDERED: LIDOCAINE 2% 2 ML VIAL/AMP(20MG/ML) INFIL ONE (14:12)
[2024-09-04] MEDS ORDERED: ONDANSETRON INJ 2 MG/ML 2 ML VIAL ONE (14:12)
--- NOTE | 2024-09-04 14:14 | Anesthesiology Consultation ---
Date of Service September 04, 2024 Assessment & Plan (1) Encounter for pre-operative examination: Chart Review Chart Review: Acceptable Risk for Surgery History Surgery Operation Date: 09/04/24 09:10 Proposed Procedures p Cystoscopy Right Retrograde Pyelogram and Stent Placement, Possible Ureteroscopy Laser Lithotripsy - Jerome Valadez MD Height/Weight Height: 5 ft 2 in Weight: 97 kg Allergies Allergy/AdvReac Type Severity Reaction Status Date / Time hydroCHLOROthiazide CAPS Allergy Intermediate Photosensit Uncoded 09/04/24 14:09 ivity SUSHI Allergy Mild RASH Uncoded 09/04/24 14:09 Medications Home Medications Medication Instructions Recorded Confirmed Last Taken cetirizine 10 mg tablet (Zyrtec) 10 mg PO PM 06/10/19 09/03/24 Unknown levonorgestrel 21 mcg/24 hr (up to 1 device intrauterine .USE 06/10/19 09/03/24 Unknown 8 years) 52 mg intrauterine device DIRECTED. #1 ea lisinopril 30 mg tablet (Zestril) 5 mg PO PM 06/10/19 09/03/24 Unknown duloxetine 20 mg capsule,delayed 60 mg PO QAM 08/01/19 09/03/24 09/03/24 release (Cymbalta) CBD 25 mg PO PM 08/27/22 09/03/24 Unknown lifitegrast [Xiidra] 1 drp ophthalmic (eye) BID 08/27/22 09/03/24 Unknown loteprednol etabonate [Eysuvis] 1 drp ophthalmic (eye) BID 08/27/22 09/03/24 Unknown omega-3 acid ethyl esters 2,500 mg PO QAM 08/27/22 09/03/24 Unknown dextroamphetamine-amphetamine ER 37.5 mg PO QAM 05/18/24 09/03/24 09/03/24 37.5 mg capsule, 3 bead, ext rel 24hr (Mydayis) Active Medications Generic Name Dose Route Start Last Admin Trade Name Freq PRN Reason Stop Dose Admin Acetaminophen 1,000 mg in 100 mls @ 400 mls/hr 09/03/24 17:45 09/04/24 05:18 Ofirmev IV 09/06/24 17:44 Infused Q8H PRN Infusion Pain Sodium Chloride 1,000 mls @ 80 mls/hr 09/04/24 09:00 09/04/24 09:35 Nss IV 09/05/24 08:59 80 mls/hr .[id number] DIMAS Administration Ketorolac Tromethamine 15 mg 09/04/24 08:51 09/04/24 11:43 Ketorolac Tromethamine 15 Mg/Ml Vial IV 09/09/24 08:50 15 mg Q6H PRN Administration Pain Past Medical History Medical History Varicella Abnormal uterine bleeding Past Family History Family History Father Alcoholism Grandmother (Maternal) Diabetes Grandfather (Paternal) Cancer Grandmother (Paternal) Cancer Grandfather (Maternal) Cancer Uncle Cancer Colorectal cancer Denies family history of Ovarian cancer Prostate cancer Myocardial infarction Breast cancer Past Surgical History Surgical History H/O oral surgery H/O section Previous delivery affecting Social History Smoking Status: Never smoker Do You Dip or Chew Tobacco: No Hx Alcohol Use: Yes Alcohol type: wine and hard liquor alcohol intake frequency: holidays/special occasions only Hx Substance Use: No Physical Exam Vital Signs Last Vital Signs Temp 36.6 C 09/04/24 07:31 Pulse 83 09/04/24 07:31 Resp 16 09/04/24 07:31 BP 162/89 H 09/04/24 07:31 Pulse Ox 97 09/04/24 07:31 O2 Del Method Room Air 09/04/24 07:31 Testing Laboratory Results 09/04/24 08:52 09/04/24 08:52 Urine Color Yellow 09/03/24 12:25 Urine Appearance Cloudy (Clear) A 09/03/24 12:25 Urine pH 7.5 (4.5-7.5) 09/03/24 12:25 Ur Specific [place] 1.011 (1.000-1.030) 09/03/24 12:25 Urine Protein 3+ (Negative) H 09/03/24 12:25 Urine Glucose (UA) Negative (Negative) 09/03/24 12:25 Urine Ketones Negative (Negative) 09/03/24 12:25 Urine Nitrite Negative (Negative) 09/03/24 12:25 Ur Leukocyte Esterase 3+ (Negative) H 09/03/24 12:25 Urine WBC (Auto) >50 /hpf (0-5) H 09/03/24 12:25 Urine RBC (Auto) >20 /hpf (0-2) H 09/03/24 12:25 U Hyaline Cast (Auto) 3-5 /lpf (0-2) H 09/03/24 12:25 U Epithel Cells (Auto) 0-2 /hpf (0-2) 09/03/24 12:25 Urine Bacteria (Auto) 1+ (None Seen) H 09/03/24 12:25 09/03/24 12:25 Urine Culture - Preliminary Urine,Clean Catch Pin-point growth present, reincubating. 09/03 preg test negative
[2024-09-04] MEDS ORDERED: PROMETHAZINE HCL 6.25 MG in SODIUM CHLORIDE 0.9% 50 ML IV PRN (14:22)
[2024-09-04] MEDS ORDERED: LABETALOL HCL IV 5 MG/ML 20ML IV PRN (14:22)
[2024-09-04] MEDS ORDERED: ATROPINE SULFATE 0.1 MG/ML 10ML SYR IV PRN (14:22)
[2024-09-04] MEDS: DIATRIZOATE MEGLUMINE 30% 100ML VIAL INSTIL ONE (15:04)
--- NOTE | 2024-09-04 15:08 | Operative Report ---
PG Post Operative Report Pre & Post Diagnosis Operation Date: 09/04/24 09:10 Pre-Op Diagnosis: 1. Hydronephrosis with obstructing calculus 2. Right ureteral stone 3. Urinary tract infection Post-Op Diagnosis: 1. Hydronephrosis with obstructing calculus 2. Right ureteral stone 3. Urinary tract infection I identified the patient and participated in the time-out.: Yes Procedure Operation Date: 09/04/24 09:10 Actual Procedures p Cystoscopy, Right Ureteroscopy, Laser Lithotripsy and Stent Placement (Not Applicable) - Jerome Valadez MD Surgeon Jerome Valadez MD Manager Diversity none Estimated Blood Loss 0 Findings Consistent with Post-Op Diagnosis Specimens none Description of Procedure The patient was identified in the preoperative holding area, appropriate informed consents were reviewed and completed and the patient was transferred to the operative suite. Upon arrival, appropriate antibiotics and anesthesia were administered and the patient was placed in dorsal lithotomy position and prepped and draped in sterile fashion. We in the case I passed 21 Croatian cystoscope with 30 degree lens per inspection revealed a healthy appearing bladder with quite cloudy urine. Right and left ureteral orifices were in orthotopic position. I washed out the bladder first and then turned my attention of the right UO. I attempted to cannulate this with a sensor wire and a 5 Croatian open-ended catheter. The advanced approximately 8 cm of the ureter before encountering resistance at the level of an opacity consistent with obstructing distal stone. I suspect the stone has been there for some time as I was unable to navigate a sensor wire around the stone. I exchanged it for a zip wire and also could not navigate this around the stone. I attempted to pass contrast and no contrast was moving around the stone. Given the lack of success, I advanced a semirigid ureteroscope into the ureter and saw the distal end of the stone. There is edematous tissue distal to the stone blocking into position and no lumen around the perimeter of the stone was visible. I used a 200 m laser fiber to begin fragmenting the stone with the hope that could create enough space to be able to pass a wire and placed a stent. I did treat about two thirds of the stone before I was able to visualize the lumen lateral to the stone. I then passed a sensor wire up to the level of the kidney. I did advance a 5 Croatian open-ended catheter into the proximal ureter and opacified the upper aspect of the collecting system I proceeded to place a 6 Croatian by 24 cm double-J stent to good curl in the kidney as well as the bladder. There is still stone remaining, however given her cloudy urine and longstanding obstruction, I think we should decompress her and allow her to recover before proceeding with the completion ureteroscopy/laser lithotripsy I attest to the content of the Intraoperative Record and any orders documented therein. Any exceptions are noted below.
[2024-09-04] MEDS: fentaNYL citrate PF 100 MCG/2 ML VIAL IV PRN (15:33)
--- NOTE | 2024-09-04 15:40 | Anesthesiology Progress Note ---
Date of Service September 04, 2024 Anesthesia Post Procedure Vital Signs Vital Signs: Temp Pulse Pulse Pulse Resp BP BP 09/04/24 15:30 79 16 171/98 H 09/04/24 15:20 36.0 C L 80 16 163/105 H 09/04/24 14:12 36.9 C 84 18 159/98 H 09/04/24 07:31 36.6 C 83 16 162/89 H 09/03/24 21:34 37.2 C 104 H 18 161/90 H 09/03/24 17:46 36.8 C 80 18 157/101 H 09/03/24 17:00 84 13 155/101 H 09/03/24 16:27 90 19 169/111 H 09/03/24 16:06 93 H 18 162/108 H Pulse Ox O2 Del Method O2 Flow Rate 09/04/24 15:30 96 Room Air 09/04/24 15:20 100 Oxymask 5 09/04/24 14:12 96 Room Air 09/04/24 07:31 97 Room Air 09/03/24 21:34 97 Room Air 09/03/24 17:46 97 Room Air 09/03/24 17:00 96 09/03/24 16:27 95 09/03/24 16:06 98 Pain Intensity Right Abdomen: Pain Intensity: 1 Transfer of Care Handoff Completed per policy Notes Mental Status: alert / awake / arousable Patient Amnestic to Procedure: Yes Nausea / Vomiting: adequately controlled Pain: adequately controlled Airway Patency, RR, SpO2: stable & adequate BP & HR: stable & adequate Hydration State: stable & adequate Anesthetic Complications: no major complications apparent
--- NOTE | 2024-09-04 16:24 | Fluoroscopy Report ---
FL retrograde includes kub CLINICAL HISTORY: CYSTO COMPARISON STUDY: CT of the abdomen and pelvis September 03, 2024. FLUOROSCOPY TIME: 73.8 seconds. Ka,r: 20.38 mGy FLUOROSCOPIC IMAGES: 2 FINDINGS: Fluoroscopy was provided during cystoscopy, lithotripsy and right ureteral stent placement. The stent is well-positioned. Intrauterine device is incidentally noted. A density adjacent to the d istal aspect of the stent may reflect a calculus/fragment. IMPRESSION: Fluoroscopy provided during cystoscopy, lithotripsy and right ureteral stent placement. ACT 112: Negative or not required by law. Electronically signed by: Gonsalo Jones M.D. 09/04/2024 4:23 PM
[2024-09-04] MEDS: cefTRIAXone SODIUM 2,000 MG/50 ML BAG IV SCH (16:36)
[2024-09-04] MEDS: oxyBUTYnin chloride 5 MG TAB PO PRN (18:37)
[2024-09-04] MEDS: MoRPHine SULFATE 2 MG/ML CARP IV PRN (20:55)
[2024-09-04] MEDS: CETIRIZINE HCL 10 MG TABLET PO SCH (20:55)
[2024-09-04 23:00] VITALS: RESP 16
[2024-09-05 07:39] LABS: Hematocrit (blood only) 39.2 % (37.0-47.0); Hemoglobin 13.2 g/dl (12.0-16.0); Mean Corpuscular Hemoglobin 29.7 pg (25.0-34.0); Mean Corpuscular Hgb Conc 33.7 g/dL (32.0-36.0); Mean Corpuscular Volume 88.3 fL (80.0-100.0); Mean Platelet Volume 10.4 fL (9.4-12.4); Platelet Count 198 K/uL (130-400); RDW Coefficient of Variation 12.4 % (11.5-14.5); RDW Standard Deviation 40.5 fL (36.4-46.3); Red Blood Count 4.44 M/uL (4.20-5.40); White Blood Count 20.57 K/ul (4.8-10.8)
[2024-09-05 07:41] LABS: BUN Creatinine Ratio 18.2 (10-20); Calcium 8.4 mg/dl (8.6-10.3); Creatinine Clr Calc Pharmacy 105.6 ml/min; Magnesium 1.9 mg/dl (1.7-2.4); Potassium 4.3 mmol/L (3.5-5.1)
--- NOTE | 2024-09-05 08:16 | Hospitalist Progress Note ---
Date of Service September 05, 2024 Assessment & Plan (1) Hydronephrosis with obstructing calculus: Plan: New onset right sided abdominal pain, no LUTS CTAP w/ severe RIGHT hydronephrosis and moderate hydroureter, 2nd to 1.3cm distal RIGHT ureteral calculus UA positive, placed on Ceftriaxone IV, IVF x 24 hrs and made NPO with pain control and Urology consulted, Dr Valadez s/p Cystoscopy, Right Ureteroscopy, Laser Lithotripsy and Stent Placement (Not Applicable) - Jerome Valadez MD Per OP report, suspected stone there for some time (see report), did need treat 2/3 of stone before was able to visualize lumen lateral to the stone. There is still stone remaining, however given cloudy urine and longstanding obstruction, thought better to let her decompress and allow her to recover before proceeding with completion ureteroscopy/laser lithotripsy. -- Discussed w/ provider and given long standing presence, could have infected stone, will need definitive tx outpatient WBC elevation 20k, ?2nd in intervention/pain, has been afebrile. Remains on Ceftriaxone Urine cx pin-point growth re-incubating and will monitor Pain control: tylenol, toradol IV (no KYLER), morphine for breakthrough added (needed 1 dose last evening). Oxybutytnin/pyridium available and started Flomax and strain order for urine (reports has been passing fragments) Discussed with Urology and preference for ongoing pain control and IV antibiotics overnight and finalized urine cx and can plan for dc in AM tomorrow if stable/improved Urology outpt f/u to be arranged and will confirm prior to dc (2) Urinary tract infection: Plan: As above, suspect 2nd to longstanding stone UA+, Urine cx pin-point growth and will continue Ceftriaxone 2gm (given +CVA tenderness) and monitor final cx/sensitivities prior to dc. Will need outpt f/u for stone tx as outlined (3) Hypertension: Plan: Hypertensive on arrival, elevation in BP likely secondary to pain Lisinopril on hold while NPO BP stable at present, elevations w/ pain control 130/85 and lisinopril ordered to resume for AM (4) Hypothyroidism: Plan: Stable per patient, no new onset of symptoms - Most recent TSH 01/02/2024 at 4.588 - Not on medical management - Recommend pt follow up outpatient regarding this (5) Depression: Plan: Stable per patient Duloxetine resumed (6) Vitamin D deficiency: Plan: checked given stones/paresthesias w/ nerve testing (TSH prior elevated w/ normal T4 in December, can be f/u with PCP and repeated w/ T3 if felt needed, danial w/ stones) Vit D LOW 14.6, PO replacement started and will plan to continue at dc and have outpatient follow up. Parathyroid hormone w/ AM labs to ensure appropriately elevated Plan Attention D/o - Dextroamphetamine-Amphetamine 37.5mg po qAM on hold for now, stable off for time being DVT proph: SCDs, ambulation encouraged. Low risk Dispo: continued inpatient stay on IV abx/monitoring cx and pain control with hopeful dc in AM if finalized and can plan to send on short course NSAIDs w/ PO abx based on sensitivities. Urology f/u for stone tx as discussed and likely would continue abx until completed Admission and Anticipated Discharge Date Admission Date: September 03, 2024 Supervising Physician Co-Signing Physician Notes The patient was not seen by me. The chart was reviewed. Case discussed with DONIS Marques. Agree with assessment and plan Subjective Eval this morning, sitting up in bed. Pain to R flank/CVA rated 4-5/10, improving since last evening. Getting dose toradol as reported improvement with such prior. Oxybutynin/pyridium available, started flomax this morning. Is passing urine, reports fragments, discussed straining urine (cup in room). Discussed OR report/laser and reported tx of two thirds of stone but possible stone infected and will require additional treatment and possible continued abx until outpt f/u arranged. Discussed WBC elevation, no fever but urine cx still pending and discussed monitoring final and possible dc in AM if pain continued improvement . No fever/chills, chest pain or shortness of breath. Appetite alright. Does have issues w/ withdrawal sx off her cymbalta and has been resumed. remains off ADHD medications and she reports not having issues off these for a day or two and will remain on hold. Vit D level low/replacement ordered as discussed. Discussed case w/ Urology who rec another day of IV abx and will plan for dc in AM pending repeat labs/final cultures and have outpt follow up with urology. Physical Exam Physical Exam: General: 38yo female resting in bed,, slightly uncomfortable moving around in b ed but NAD. HEENT: head atraumatic, normocephalic, mm slightly dry, trachea midline Resp: even/unlabored, no w/c/r, on room air 97% CV: RRR, no significant m/r/g, no pitting edema GI: +BS, soft/slight distension, nontender : +RIGHT CVA tenderness MSK/Neuro: nonfocal, answering questions appropriately, not confused Psych:AOX3, cooperative with exam Results & Data Results & Data Vital Signs (Past 12 Hours) Vital Signs Temp Pulse Resp BP Pulse Ox O2 Del Method 09/05/24 07:47 37.0 C 93 H 16 130/85 94 Room Air 09/04/24 22:59 37.0 C 87 16 163/97 H 94 Room Air PG Care Time/CCT Total # of Minutes Spent Total Time Spent with Patient: Total time spent is greater than 50% in coordination of care (as documented) at patient's floor/unit and/or counseling patient: Coding Level of Care Code 10416 SUB INP/OBS CARE 3/50MIN Diagnoses Hydronephrosis with obstructing calculus N13.2 Urinary tract infection N39.0 Hypertension I10 Hypothyroidism E03.9 Depression F32.9 Vitamin D deficiency E55.9
[2024-09-05] MEDS: DULoxetine HCL 60 MG CAP PO SCH (09:37)
[2024-09-05] MEDS: TAMSULOSIN HCL 0.4 MG CAP PO SCH (09:43)
[2024-09-05] MEDS: CHOLECALCIFEROL 25 MCG (1000 UNITS) TAB PO SCH (09:43)
[2024-09-05] MEDS: INFLUENZA VACC TS2024-25(6m+)/PF (IIV3) 0.5mL Syr IM ONE (10:10)
--- NOTE | 2024-09-05 10:37 | Urology Progress Note ---
Date of Service September 05, 2024 Assessment & Plan (1) Right ureteral stone: (2) Hydronephrosis with obstructing calculus: Plan POD #1 s/p Cystoscopy, Right Ureteroscopy, Laser Lithotripsy and Stent Placement Doing well today, tolerating the stent with moderate bother. Remains afebrile and hemodynamically stable Labs today show normal renal function and white count up to 20.57 (possibly from intervention/pain/?infection) - continue to trend Urine culture pending, continues on Ceftriaxone Voiding without issue Plan- Continue antibiotics and tailor as culture data becomes available Continue tamsulosin, prn pyridium, prn oxybuynin and prn analgesics for stent management We reviewed that there is still stone remaining, but due to cloudy urine and longstanding obstruction, plan is to decompress her and allow her to recover before proceeding with the completion ureteroscopy/laser lithotripsy. Will arrange outpatient follow-up with our office for continued stone management Urology will sign-off. Please call with any further questions, concerns, or changes in patient status. Admission and Anticipated Discharge Date Admission Date: September 03, 2024 Subjective Pt seen at bedside today Awake and resting in bed on arrival No acute distress Reports stent discomfort, but improved from yesterday Voiding without issue No fevers Review of Systems Constitutional: as per Subjective / HPI Genitourinary: as per Subjective / HPI Physical Exam Constitutional: no acute distress Respiratory: no respiratory distress and no labored breathing Neurologic: moves all extremities and awake Psychiatric: A+Ox3, euthymic affect Results & Data Vital Signs (Past 12 Hours) Vital Signs Temp Pulse Resp BP Pulse Ox O2 Del Method 09/05/24 07:47 37.0 C 93 H 16 130/85 94 Room Air 09/04/24 22:59 37.0 C 87 16 163/97 H 94 Room Air PG Care Time/CCT Total # of Minutes Spent Total Time Spent with Patient: Total time spent is greater than 50% in coordination of care (as documented) at patient's floor/unit and/or counseling patient: Coding Level of Care Code 36209 SUB INP/OBS CARE 2/35MIN Diagnoses Right ureteral stone N20.1 Hydronephrosis with obstructing calculus N13.2
[2024-09-05] MEDS: PHENAZOPYRIDINE HCL 100 MG TAB PO PRN (20:17)
[2024-09-06 06:21] LABS: BUN Creatinine Ratio 16.9 (10-20); Calcium 8.3 mg/dl (8.6-10.3); Creatinine Clr Calc Pharmacy 125.1 ml/min; Potassium 4.1 mmol/L (3.5-5.1)
[2024-09-06 07:02] LABS: Basophils # (auto) 0.05 K/uL (0.00-0.20); Basophils % (auto) 0.6 %; Eosinophils # (auto) 0.11 K/uL (0.00-0.50); Eosinophils % (auto) 1.2 %; Hematocrit (blood only) 38.3 % (37.0-47.0); Hemoglobin 13.3 g/dl (12.0-16.0); Immature Granulocytes # (auto) 0.04 K/uL (0.01-0.20); Immature Granulocytes % (auto) 0.4 %; Lymphocytes # (auto) 2.78 K/uL (1.20-3.40); Lymphocytes % (auto) 30.7 %; Mean Corpuscular Hemoglobin 30.4 pg (25.0-34.0); Mean Corpuscular Hgb Conc 34.7 g/dL (32.0-36.0); Mean Corpuscular Volume 87.6 fL (80.0-100.0); Mean Platelet Volume 10.5 fL (9.4-12.4); Monocytes # (auto) 0.88 K/uL (0.11-0.59); Monocytes % (auto) 9.7 %; Neutrophils # (auto) 5.19 K/uL (1.40-6.50); Neutrophils % (auto) 57.4 %; Platelet Count 174 K/uL (130-400); RDW Coefficient of Variation 12.6 % (11.5-14.5); RDW Standard Deviation 40.1 fL (36.4-46.3); Red Blood Count 4.37 M/uL (4.20-5.40); White Blood Count 9.05 K/ul (4.8-10.8)
[2024-09-06 07:30] LABS: Estimated Average Glucose 105 mg/dl; Hemoglobin A1C 5.3 % (4.5-5.6)
[2024-09-06 07:34] VITALS: BP 162/93; PULSE 83; TEMP 98.1; O2SAT 93
[2024-09-06] MEDS: lisinopril 10 MG TAB PO SCH (08:51)
--- NOTE | 2024-09-06 11:14 | Discharge Summary ---
Discharge Summary Date of Service September 06, 2024 Principal Dx & Hospital Course #1 = Principal Diagnosis (1) Hydronephrosis with obstructing calculus: Presented with new onset right sided abdominal pain, no LUTS - CTAP w/ severe RIGHT hydronephrosis and moderate hydroureter, 2nd to 1.3cm distal RIGHT ureteral calculus - UA positive on admission - Urology consulted > Cystoscopy, Right Ureteroscopy, Laser Lithotripsy and Stent Placement with Dr. Valadez on 09/04 > Follow-up with urology outpatient for completion ureteroscopy/laser lithotripsy - Treated with ceftriaxone while inpatient - Continue to strain urine - Discharged on Cipro 500 mg BID for 7 day total antibiotic regimen, Flomax daily, oxybutynin PRN, Pyridium PRN, and Toradol for breakthrough pain. Encouraged to use ibuprofen/Tylenol as first line pain meds (2) Urinary tract infection: As above, suspect 2nd to longstanding stone - UA+, urine culture without sensitivities - Discharged on Cipro 500 mg BID for total of 7 day antibiotic regimen - Follow-up with urology outpatient (3) Hypertension: Hypertensive on arrival, elevation in BP likely secondary to pain; stabalized - Continue lisinopril (4) Hypothyroidism: Stable per patient, no new onset of symptoms - Most recent TSH 01/02/2024 at 4.588 - Not on medical management - Recommend pt follow up outpatient regarding this (5) Depression: Stable per patient - Continue Duloxetine (6) Vitamin D deficiency: Checked given stones/paresthesias with nerve testing (TSH prior elevated with normal T4 in December, can be f/u with PCP and repeated with T3 if felt needed, danial with stones) - Vit D LOW 14.6, PO replacement started and continued on discharge Plan CODE STATUS: Full code Notes For Next Care Provider Follow-up TSH level and repeat with T3 if needed Medication Changes From Visit Ciprofloxacin 500 mg BID x 5 days Flomax daily Oxybutynin PRN Pyridium PRN Toradol PRN Vitamin D daily Admission HPI Per Admitting Provider 38-year-old female presenting for right-sided abdominal pain. ED course: CBC- WBC 12.54, neutrophil predominant (10.31); BMP glucose 143; hCG negative; UA cloudy, 3+ protein, 3+ blood, 3+ LE, presence of WBC, RBC, hyaline cast, 1+ bacteria, mucus; CTAP severe right hydronephrosis and moderate hydroureter due to 1.3 cm distal right ureteral calculus, right calyceal dilatation and significant cortical thinning (findings may reflect acute on chronic process), urothelial thickening raises possibility of superimposed infectious process.; Provided with Zofran, morphine, Rocephin, Tylenol in ED. Patient is a 38-year-old female PMHx HTN, hypothyroidism, and depression presenting for right-sided abdominal pain. States that the night prior to arrival she had had a large meal and had associated abdominal pain and fullness following this. Abdominal fullness started to subside, she noticed increased thirst and lingering right-sided abdominal pain. States that she woke up multiple times throughout the night that have drinks of water. However, in the morning she noted that her urine was darker than she expected since she had been drinking so much water. Initially, the pain started out as a 5/10 on the pain scale but had increased to 8/10 at maximum severity. Denies nausea/vomiting or LUTS. No fever/chills. States that she has had a renal calculi in the past, but did not know until after it was passed. Has never this happen before. Pain is currently 0/10 on the pain scale after administration of pain medications. Took all a.m. medications. Please see Dr. Soto's attestation for adjustments/additions to treatment plan. Discharge Exam General: No acute distress, nondiaphoretic, well-developed, well-nourished. Skin: The skin was without rashes, erythema, edema, or bruising. Cardiac: Regular rate and rhythm without murmurs gallops or rubs. Pulm: Clear to auscultation bilaterally without wheezes, rales or rhonchi. No respiratory distress. 93% on room air. Abdominal: Soft, nontender, nondistended. Bowel sounds present. No CVA tenderness bilaterally. Neuro: A&O x3. No focal neurological deficits. Discharge Plan Discharge Items Patient Disposition: Home - Self-Care Reason For Visit: HYDRONEPHROSIS, UTI Discharge Diagnosis: Kidney Stone with obstruction, UTI Goals: You have been hospitalized for an urgent problem which required surgery. During your stay at [facility], we have made an effort to correct the problem that brought you to the hospital while keeping you as comfortable as possible. Surgery and medications were used to bring your condition under control and your discharge instructions will include directions for any medications you should take after leaving the hospital. Please make sure to follow the advice of your surgeon regarding follow up with the surgeon and with your primary care provider. Activity: As commented below Non-emergency contact: Primary Care Provider and Urologist Call non-emergency contact if: you have any medication questions, your symptoms worsen, your pain is not controlled, your pain is concerning for you and you have a fever Follow-up/Referrals: Jerome Valadez MD [Physician] - (Follow-up as scheduled by urology ) Jerome Jeffrey MD [Primary Care Provider] - (Follow-up in 1-2 weeks) Diet: Heart Healthy Addtl Attending Provider Instructions: Yaneth, You were admitted to the hospital due to a large right-sided obstructing kidney stone. You were seen by urology, who performed a cystoscopy, right ureteroscopy, laser lithotripsy, and right sided stent placement. However, you will need ongoing management with repeat lithotripsy outpatient for definitive stone management. You were also found to have an acute urinary tract infection (UTI). You were treated with IV antibiotics while hospitalized, and will be discharged with oral antibiotics to continue taking at home. Your prescriptions have been sent to your [facility] pharmacy in [place]. Upon discharge from the hospital: * Take ciprofloxacin (oral antibiotic) 500 mg twice daily for an additional 5 days. It is important to complete this course of antibiotics even if you begin to feel better. Not finishing these antibiotics can result in the infection returning or could make future infections harder to treat. > Please avoid any heavy exercising and monitor for any tendon issues, as there can be risk for tendinitis/tendon rupture when taking this class of antibiotics. * Take Flomax 1 capsule daily. This will help allow stone pieces to pass. * Alternate between Ibuprofen and Tylenol as your first line pain medication. These are available epoy-qtm-iodfjjd (OTC), so no prescription is required. * Take Toradol 1 tablet every 6 hours NEEDED for breakthrough pain. * Use oxybutynin 1 tablet twice daily as needed for bladder spasms. * Use Pyridium 1 tablet three times daily as needed to relieve urinary symptoms (pain, burning, increased urge/frequency). * Continue your Vitamin D supplement daily. * Continue to strain your urine at home. * Follow-up with urology outpatient. Their office will call you with your appointment details. * Follow-up with your PCP in 1-2 weeks. While you have a ureteral stent in place: Some discomfort is normal. Certain movements may trigger pain or a feeling that you need to urinate. You may also feel mild soreness or pressure before or during urination. These symptoms should go away a few days after the stent is removed. Your urine may be slightly pink or red. This is due to bleeding caused by minor irritation from the stent. This may happen on and off while you have the stent, it is not harmful and is to be expected. Medication to help minimize discomfort or bladder spasms, or to prevent infection may be prescribed. Take this as directed. Drink plenty of fluids to help flush out your urinary tract. If you go home with a catheter, wash with soapy water and a fresh washcloth twice daily. We recommend mild bar soap such as Dial or Dove. When to call [facility] Urology at [phone]: Your urine contains heavy blood clots You are constantly leaking urine Fever of 101F or higher, chills, nausea, or vomiting Your pain is not relieved with medication The end of the stent comes out of your urethra Please return to the ER with any increased/worsening pain, fever, inability to tolerate oral fluids/hydration, or for any other symptoms concerning for you. It was a pleasure taking care of you while you were in the hospital, Katarzyna Lepe PA-C Pending Studies at Discharge: No Stand-Alone Forms: My [facility], Smoking Cessation Medications and DC Order Prescriptions: New ciprofloxacin HCl 500 mg tablet 500 mg PO BID 5 Days Qty: 10 0RF tamsulosin [Flomax] 0.4 mg capsule 0.4 mg PO DAILY Qty: 14 0RF oxybutynin chloride 5 mg tablet 5 mg PO BID PRN (Reason: bladder spasms) Qty: 14 0RF cholecalciferol (vitamin D3) 25 mcg (1,000 unit) Capsule 25 mcg PO QAM Qty: 30 0RF phenazopyridine [Pyridium] 100 mg Tablet 100 mg PO TID PRN (Reason: Urinary symptoms) Qty: 60 0RF ketorolac 10 mg tablet 10 mg PO Q6H PRN (Reason: breakthrough pain) 5 Days Qty: 20 0RF Continued lisinopril [Zestril] 30 mg tablet 5 mg PO PM cetirizine [Zyrtec] 10 mg tablet 10 mg PO PM levonorgestrel 20 mcg/24 hours (5 yrs) 52 mg intrauterine device 1 device IU .USE DIRECTED. Qty: 1 Patient Comments: inserted 04/26/19 duloxetine [Cymbalta] 20 mg capsule,delayed release(DR/EC) 60 mg PO QAM loteprednol etabonate [Eysuvis] 1 drp ophthalmic (eye) BID CBD 25 mg PO PM omega-3 acid ethyl esters 2,500 mg PO QAM lifitegrast [Xiidra] 1 drp ophthalmic (eye) BID dextroamphetamine-amphetamine [Mydayis] 37.5 mg capsule, ER multiphase 24 hr 37.5 mg PO QAM Discharge Orders: Discharge Order (Routine); Ordered 09/06/24 Ordered By: Katarzyna Lepe Admission Data Admit Date/Time: 09/03/24 16:10 Attending Provider: Kenyon Gutierrez Admit Provider: Jimmy Soto Primary Care Provider: Jerome Jeffrey Other Providers: Francis Silveira; Jimmy Soto Other Interventions: Discharge Summary Assessment (RN) Last Done: 09/06/24 11:24 Hospital Stay Data Consultations 09/03/24 15:51 ED Decision to Admit Stat 09/03/24 16:10 Consult Urology Routine Procedures Performed Operation Date: 09/04/24 09:10 Actual Procedures p Cystoscopy, Right Ureteroscopy, Laser Lithotripsy and(Not Applicable) - Librado Valadez MD s Stent Placement (Not Applicable) - Jerome Valadez MD Diagnostic Imagining Performed Abdomen/Pelvis CT 09/03/24 12:32 CT OF THE ABDOMEN AND PELVIS WITH CONTRAST CLINICAL HISTORY: Right-sided abdominal pain. COMPARISON STUDY: Pelvic ultrasound May 21, 2024. TECHNIQUE: Following IV administration of 94 mL of Optiray, axial images of the abdomen and pelvis were obtained from the lung bases to the proximal femurs. Images were reviewed in the axial, sagittal, and coronal planes. IV contrast was administered without complication. Automated exposure control was utilized for the study. A dose lowering technique was utilized adhering to the principles of ALARA. CT DOSE: 1447.29 mGy.cm FINDINGS: Lung bases are unremarkable. No pneumatosis, free air or portal venous gas is present. Liver, spleen, adrenal glands and pancreas are unremarkable. There is no evidence for a bowel obstruction. The appendix is normal. Intrauterine device is in place. There is a 2.4 cm left ovarian cyst. Severe right hydronephrosis and moderate hydroureter is due to a 1.3 cm distal right ureteral calculus just below the level of the SI joint. There is marked right calyceal dilatation with renal cortical thinning. There is mild urothelial thickening with mild right perinephric stranding. Sensitivity for detection of left renal calculus diminished given excreted contrast. There are no bladder calculi. IMPRESSION: Severe right hydronephrosis and moderate hydroureter due to a 1.3 cm distal right ureteral calculus, as described above. Given marked right calyceal dilatation and significant cortical thinning, the findings may reflect an acute on chronic process. Urothelial thickening raises the possibility of a superimposed infectious process which could be correlated with urinalysis. ACT 112: Negative or not required by law. Electronically signed by: Gonsalo Jones M.D. 09/03/2024 2:36 PM Retrograde Pyelogram 09/04/24 00:00 FL retrograde includes kub CLINICAL HISTORY: CYSTO COMPARISON STUDY: CT of the abdomen and pelvis September 03, 2024. FLUOROSCOPY TIME: 73.8 seconds. Ka,r: 20.38 mGy FLUOROSCOPIC IMAGES: 2 FINDINGS: Fluoroscopy was provided during cystoscopy, lithotripsy and right ureteral stent placement. The stent is well-positioned. Intrauterine device is incidentally noted. A density adjacent to the distal aspect of the stent may reflect a calculus/fragment. IMPRESSION: Fluoroscopy provided during cystoscopy, lithotripsy and right ureteral stent placement. ACT 112: Negative or not required by law. Electronically signed by: Gonsalo Jones M.D. 09/04/2024 4:23 PM Pending Results Patient Have Any Pending Studies at Discharge: No Discharge Instructions Given to Patient (Per Discharging Provider) Yaneth, You were admitted to the hospital due to a large right-sided obstructing kidney stone. You were seen by urology, who performed a cystoscopy, right ureteroscopy, laser lithotripsy, and right sided stent placement. However, you will need ongoing management with repeat lithotripsy outpatient for definitive stone management. You were also found to have an acute urinary tract infection (UTI). You were treated with IV antibiotics while hospitalized, and will be discharged with oral antibiotics to continue taking at home. Your prescriptions have been sent to your [facility] pharmacy in [place]. Upon discharge from the hospital: * Take ciprofloxacin (oral antibiotic) 500 mg twice daily for an additional 5 days. It is important to complete this course of antibiotics even if you begin to feel better. Not finishing these antibiotics can result in the infection returning or could make future infections harder to treat. > Please avoid any heavy exercising and monitor for any tendon issues, as there can be risk for tendinitis/tendon rupture when taking this class of anti biotics. * Take Flomax 1 capsule daily. This will help allow stone pieces to pass. * Alternate between Ibuprofen and Tylenol as your first line pain medication. These are available bphz-tjo-dqjbjbr (OTC), so no prescription is required. * Take Toradol 1 tablet every 6 hours NEEDED for breakthrough pain. * Use oxybutynin 1 tablet twice daily as needed for bladder spasms. * Use Pyridium 1 tablet three times daily as needed to relieve urinary symptoms (pain, burning, increased urge/frequency). * Continue your Vitamin D supplement daily. * Continue to strain your urine at home. * Follow-up with urology outpatient. Their office will call you with your appointment details. * Follow-up with your PCP in 1-2 weeks. While you have a ureteral stent in place: Some discomfort is normal. Certain movements may trigger pain or a feeling that you need to urinate. You may also feel mild soreness or pressure before or during urination. These symptoms should go away a few days after the stent is removed. Your urine may be slightly pink or red. This is due to bleeding caused by minor irritation from the stent. This may happen on and off while you have the stent, it is not harmful and is to be expected. Medication to help minimize discomfort or bladder spasms, or to prevent infection may be prescribed. Take this as directed. Drink plenty of fluids to help flush out your urinary tract. If you go home with a catheter, wash with soapy water and a fresh washcloth twice daily. We recommend mild bar soap such as Dial or Dove. When to call [facility] Urology at [phone]: Your urine contains heavy blood clots You are constantly leaking urine Fever of 101F or higher, chills, nausea, or vomiting Your pain is not relieved with medication The end of the stent comes out of your urethra Please return to the ER with any increased/worsening pain, fever, inability to tolerate oral fluids/hydration, or for any other symptoms concerning for you. It was a pleasure taking care of you while you were in the hospital, Katarzyna Lepe PA-C Supervising Physician Co-Signing Physician Notes The patient was not seen by me. The chart was reviewed. Case discussed with DONIS Motley. Agree with assessment and plan Total Time Total Time Spent Total Time Spent (In Minutes): Greater than 30 minutes spent completing this discharge process including direct patient care, medication reconciliation, documentation, review of labs and images, and coordination of care. Coding Level of Care Code 09599 INP/OBS DISCH >30 MIN Diagnoses Hydronephrosis with obstructing calculus N13.2 Urinary tract infection N39.0 Hypertension I10 Hypothyroidism E03.9 Depression F32.9 Vitamin D deficiency E55.9
--- NOTE | 2024-09-10 06:13 | Electrocardiogram Report ---
Test Reason : Blood Pressure : */* mmHG Vent. Rate : 93 BPM Atrial Rate : 93 BPM P-R Int : 166 ms QRS Dur : 80 ms QT Int : 334 ms P-R-T Axes : 13 26 42 degrees QTcB Int : 415 ms Normal sinus rhythm Minimal voltage criteria for LVH, may be normal variant Borderline ECG No previous ECGs available Confirmed by Jerome Suárez ([id number]) on 09/05/2024 4:53:37 PM Referred By: REFERRED SELF Confirmed By: Jerome Suárez
== END 2024-09-06 12:20 | disposition home or self-care (01) | DRG 661 ==
LOC: ED 11:55 → 3W 16:10 → SUATTDRO 16:10 → 3W 17:15

== ENCOUNTER 2024-09-28 17:55 | Inpatient (IN) ==
--- NOTE | 2024-09-28 18:14 | Emergency Department Note ---
Impression & Plan Hydronephrosis with obstructing calculus, Urinary tract infection ED Provider Note CHIEF COMPLAINT: Right flank pain HISTORY OF PRESENTING ILLNESS: This 38-year-old female patient presents to the emergency department with her significant other for evaluation of right flank pain. The patient was diagnosed with a 1.3 cm distal right ureteral calculus with severe right hydronephrosis and moderate hydroureter on 09/03/2024. The patient had an elevated white blood cell count of 12.54 at that time with normal renal functions. The patient's urinalysis was concerning for infection so she was admitted to the hospital for further evaluation and treatment. The patient had cystoscopy, right ureteroscopy, laser lithotripsy, and stent placement by Dr. Valadez on 09/04/2024. The patient was treated with ceftriaxone while inpatient and discharged on Cipro 500 mg twice a day for 7 days as well as Flomax, oxybutynin, Pyridium, and Toradol. The patient states that they could not perform complete lithotripsy due to the size of the stone and the amount of infection. The patient had a repeat ureteroscopy, laser lithotripsy, and stent exchange on 09/18/[address] Valadez. The patient states that the stent started to fall out on its own on 09/19/2024 and since it was taped to her leg she accidentally pulled the stent out 1 time when she was moving her leg. Therefore, she has not had a stent in place since 09/19/2024. The patient states she started with right flank pain and back pain yesterday. She is also having nausea, but no vomiting. The patient had an outpatient KUB done earlier today by urology, but the radiology report is not back yet. She also gave a urine sample, but no urinalysis is in her chart. The patient states that the pain and nausea got progressively worse and then she developed a fever 102.9 F and she became concerned and came to the ER. The patient has been taking ibuprofen for her symptoms. Last dose of ibuprofen was at 1330 today. She finished the Cipro and is not currently on antibiotics. No vomiting, but she feels tired, has chills, and body aches. Sometimes feels dizzy since the fever started. She rates her discomfort as 3/10. She denies any chest pain or SOB. REVIEW OF SYSTEMS: See HPI for pertinent positives and pertinent negatives. ALLERGIES: HCTZ MEDICATIONS: See below PAST MEDICAL HISTORY: See below PHYSICAL EXAM: VITALS: Vitals are noted on the nurse's note and reviewed by myself. GENERAL: Non toxic, in no acute distress, non-diaphoretic. SKIN: Capillary refill <2 sec. EYES: PERRLA. EOMI. Conjunctivae without injection, sclerae without icterus. NOSE: Patent without discharge. MOUTH: Mucous membranes moist. Uvula midline. Airway patent. NECK: Supple without nuchal rigidity. HEART: Regular rate and rhythm without murmurs gallops or rubs. LUNGS: Clear to auscultation bilaterally without wheezes, rales or rhonchi. No retractions or accessory muscle use. ABDOMEN: Positive bowel sounds x 4. Normal tympanic percussion. Soft, diffusely tender to palpation, but worse on the right side of the abdomen and right flank. No masses or hepatosplenomegaly. Bernner sign negative. Mildly positive R>L CVA tenderness. No guarding, rigidity, or rebound tenderness. No focal RLQ or LLQ tenderness. MUSCULOSKELETAL: No gross musculoskeletal defects. NEURO: Patient was alert and oriented. No focal neurological deficits. DIFFERENTIAL DIAGNOSIS: Differential diagnosis includes hepatitis, pancreatitis, cholecystitis, cholelithiasis, appendicitis, kidney stone, pyelonephritis, UTI, gastritis, gastroenteritis, mesenteric adenitis, obstruction, constipation, hernia, abdominal abscess, perforation, diverticulitis, IBD, ischemic colitis, abdominal aortic aneurysm, , ectopic , ovarian cyst, ovarian torsion, acute salpingitis, or others. ED COURSE AND MEDICAL DECISION MAKING: HISTORY FROM INDEPENDENT HISTORIAN: Additional history was obtained from the patient's significant other. MEDICATIONS GIVEN: 1 L normal saline solution bolus. Toradol 10 mg IV. Zofran 4 mg IV x 2. Rocephin 2 g IV. Tylenol 1000 mg IV. MONITOR: Continuous monitor technician: Order was placed for continuous monitor technician. Patient was placed on the monitor technician and continuous pulse ox. Patient was noted to be in sinus tachycardia at an initial rate of 120 bpm per my interpretation. INTERPRETATION OF LABS: I interpreted the labs with full lab results as below in the lab section of this note. Pertinent lab results discussed in the MDM section below. INTERPRETATION OF IMAGING: Imaging studies were interpreted by myself and read by radiology as per the imaging section of this note. Chest x-ray showed a trace amount of subsegmental atelectasis in the right medial lung base, but no evidence for other acute cardiopulmonary etiology. CT scan of the abdomen pelvis with IV contrast shows a moderate right hydronephrosis and hydroureter down to an irregular 9 x 6 mm calculus in the distal right ureter located 3 cm from the ureterovesicular junction. The appendix is normal. Nondilated bowel loops. No acute inflammatory changes noted. EXTERNAL RECORDS REVIEWED: I reviewed the patient's recent admission and outpatient/surgical urology notes as summarized above. CONSULTATIONS: Bong Dunlap PA-C of urology. On-call hospitalist. MDM SUMMARY: I examined the patient. The patient was diagnosed with a 1.3 cm distal right ureteral calculus with severe right hydronephrosis and moderate hydroureter on 09/03/2024. She also appeared to have a UTI and infection at that time. She was admitted and started on IV ceftriaxone and had cystoscopy, right ureteroscopy, laser lithotripsy, and stent placement by Dr. Valadez on 09/04/2024. The patient was discharged home on Cipro, Flomax, oxybutynin, Pyridium, and Toradol. The patient had repeat ureteroscopy, laser lithotripsy, and stent exchange on 09/18/[address] Valadez because of the large size of the stone. The patient states that the stent accidentally came out on its own on 09/19/2024. She had been doing well until yesterday when she started with worsening right flank pain and nausea. Today she developed a fever as well and became concerned. The patient admitted to fevers of 102.9 F at home, but she was afebrile upon presentation. An IV lock was placed and labs were drawn. Initially the patient was given 1 L normal saline solution bolus, Toradol 10 mg IV, and Zofran 4 mg IV. This improved with the patient's pain and her tachycardia. White blood cell count elevated at 19.09. Hemoglobin normal at 14.8. Platelet count normal at 189. PT/INR was normal. Sodium slightly low at 135, glucose 139, and alk phos elevated at 111. CMP otherwise normal. Lactate and procalcitonin were normal. Lipase normal. Serum hCG negative. Urinalysis with 2+ blood, 3+ leukocyte esterase, greater than 50 white blood cells, 6-10 red blood cells, 3-5 hyaline cast, 0-2 epithelial cells, and no bacteria. This is concerning for possible infection with urine culture pending. Respiratory BioFire was negative. Chest x-ray showed a trace amount of subsegmental atelectasis in the right medial lung base, but no evidence for other acute cardiopulmonary etiology. CT scan of the abdomen pelvis with IV contrast shows a moderate right hydronephrosis and hydroureter down to an irregular 9 x 6 mm calculus in the distal right ureter located 3 cm from the ureterovesicular junction. The appendix is normal. Nondilated bowel loops. No acute inflammatory changes noted. The patient was given Rocephin 2 g IV. She was given additional Tylenol 1000 mg IV and Zofran 4 mg IV for additional pain and nausea. The patient states that she has been taking her Flomax at home so I did not give a dose of Flomax in the ER. Due to the patient's subjective fever, continued pain, elevated white blood cell count, concerning urinalysis, and persisting stone on CT scan imaging I spoke with Bong Dunlap PA-C of urology. He recommended the patient be admitted by medicine for further IV antibiotics and plan for possible additional urologic intervention. I spoke with the on-call hospitalist who agreed to admit the patient for further evaluation and treatment. Please refer to their dictation for further details. The patient's care was transferred in stable condition. DIAGNOSIS: Right-sided hydronephrosis with obstructing calculus Possible UTI Past Med/Surg History Problem List (Updated 09/29/24 @ 01:59 by Saba Crespo PA-C) Vitamin D deficiency Encounter for pre-operative examination Right ureteral stone (Acute) Urinary tract infection (Acute) Hydronephrosis with obstructing calculus (Acute) Breast discharge Hirsutism Depression Hypothyroidism IUD (intrauterine device) in place Mirena 04/2019 Hypertension Medical History Hx of migraines as teenager Kidney stone IUD (intrauterine device) in place History of hypothyroidism not for last 8 years (~2016, with ) Hypertension Depression Surgical History S/P cystoscopy with ureteral stent placement H/O oral surgery early 20's>wisdom teeeth H/O section x2 Previous delivery affecting duplicate Family History Father Alcoholism Grandmother (Maternal) Diabetes Grandfather (Paternal) Cancer Grandmother (Paternal) Cancer Grandfather (Maternal) Cancer Uncle Cancer Colorectal cancer Denies family history of Ovarian cancer Prostate cancer Myocardial infarction Breast cancer Social History Smoking Status: Never smoker Second Hand Exposure: No; Do You Dip or Chew Tobacco: No; Tobacco Cessation Education Requested by Patient: No Hx Alcohol Use: No (drink occasionally) Hx Substance Use: Yes Last Used Substance Other:: over a month ago Substance Use Type Other:: has marijuana card Preferred Language: Polish Communication Ability: Effective Sample Distributor Required: No Beliefs That Will Affect Care: None marital status: Current Living Situation: Spouse and Family Current Living Situation Comment: lives with and 2 kids Other Information That Helps Us Care for You: No Feels Safe at Home: Yes Sunscreen Use: Yes Assistive Devices: Glasses Allergies Allergies Allergy/AdvReac Type Severity Reaction Status Date / Time hydrochlorothiazide AdvReac Intermediate Photosensit Verified 09/18/24 11:18 ivity Home Meds Home Medications Medication Instructions Recorded Confirmed cetirizine 10 mg tablet (Zyrtec) 10 mg PO HS 06/10/19 09/28/24 levonorgestrel 21 mcg/24 hr (up to 1 device intrauterine UD #1 ea 06/10/19 09/28/24 8 years) 52 mg intrauterine device CBD 25 mg PO HS PRN Pain 08/27/22 09/28/24 omega-3 acid ethyl esters 2,500 mg PO QAM 08/27/22 09/28/24 dextroamphetamine-amphetamine ER 37.5 mg PO QAM 05/18/24 09/28/24 37.5 mg capsule, 3 bead, ext rel 24hr (Mydayis) duloxetine 60 mg capsule,delayed 60 mg PO QAM 09/12/24 09/28/24 release ketorolac 10 mg tablet 10 mg PO Q6H PRN Pain 09/12/24 09/18/24 lifitegrast 5 % eye drops in a 1 drp ophthalmic (eye) BID 09/12/24 09/28/24 dropperette (Xiidra) lisinopril 5 mg tablet 5 mg PO HS 09/12/24 09/28/24 loteprednol etabonate 0.5 % eye 1 drp OPB BID 09/12/24 09/28/24 drops,suspension tamsulosin 0.4 mg capsule (Flomax) 0.4 mg PO QAM 09/12/24 09/28/24 Previous Rx's Medication Instructions Recorded cholecalciferol (vitamin D3) 25 25 mcg PO QAM #30 caps 09/05/24 mcg (1,000 unit) capsule phenazopyridine 100 mg tablet 100 mg PO TID PRN Urinary symptoms 09/06/24 (Pyridium) #60 tabs ciprofloxacin HCl 500 mg tablet 500 mg PO BID #6 tabs 09/18/24 (Cipro) Results & Data (ED) Vital Signs Vital Signs - 24 hr 09/28/24 17:57 09/28/24 18:39 09/28/24 18:47 Temperature 37 C Temperature Source Temporal Artery Scan Pulse Rate 135 H Pulse Rate [Finger] 106 H Pulse Rhythm [Finger] Regular Pulse Strength [Finger] Normal Respiratory Rate 20 16 Respiratory Effort / Characteristics Non-Labored Spontaneous Respiratory Depth Normal Blood Pressure 144/81 H Blood Pressure [Left Arm] 131/91 Blood Pressure Mean 102 Blood Pressure Mean [Left Arm] 104 Pulse Oximetry 98 99 99 Oxygen Delivery Method Room Air Room Air Sepsis Recent Fever Within 48 Hours No Sepsis New/Unexplained Change in Mental Status No Sepsis Action Taken by Nursing No Action Required 09/28/24 18:49 09/28/24 20:06 Temperature Temperature Source Pulse Rate 114 H Pulse Rate [Finger] 106 H Pulse Rhythm [Finger] Regular Pulse Strength [Finger] Normal Respiratory Rate 16 Respiratory Effort / Characteristics Non-Labored Spontaneous Respiratory Depth Normal Blood Pressure Blood Pressure [Left Arm] 133/76 Blood Pressure Mean Blood Pressure Mean [Left Arm] 95 Pulse Oximetry 97 Oxygen Delivery Method Room Air Sepsis Recent Fever Within 48 Hours Sepsis New/Unexplained Change in Mental Status Sepsis Action Taken by Nursing Laboratory Data 09/29/24 07:40 09/29/24 07:40 Lab Results 09/28/24 09/28/24 09/28/24 Range/Units 18:15 18:49 19:13 WBC 19.01 H (4.8-10.8) K/ul RBC 4.90 (4.20-5.40) M/uL Hgb 14.8 (12.0-16.0) g/dl Hct 42.9 (37.0-47.0) % MCV 87.6 (80.0-100.0) fL MCH 30.2 (25.0-34.0) pg MCHC 34.5 (32.0-36.0) g/dL RDW Std Deviation 39.7 (36.4-46.3) fL RDW Coeff of Cody 12.5 (11.5-14.5) % Plt Count 189 (130-400) K/uL MPV 10.8 (9.4-12.4) fL Immature Gran % (Auto) 0.5 % Neut % (Auto) 86.2 % Lymph % (Auto) 7.5 % Esmeralda % (Auto) 5.4 % Eos % (Auto) 0.1 % Baso % (Auto) 0.3 % Neut # (Auto) 16.40 H (1.40-6.50) K/uL Lymph # (Auto) 1.43 (1.20-3.40) K/uL Esmeralda # (Auto) 1.02 H (0.11-0.59) K/uL Eos # (Auto) 0.02 (0.00-0.50) K/uL Baso # (Auto) 0.05 (0.00-0.20) K/uL Immature Gran # (Auto) 0.09 (0.01-0.20) K/uL PT 10.3 (9.0-12.0) Seconds INR 0.9 (0.9-1.1) Sodium 135 L (136-145) mmol/L Potassium 4.0 (3.5-5.1) mmol/L Chloride 103 (98-107) mmol/L Carbon Dioxide 24 (21-32) mmol/L Anion Gap 8 (3-11) BUN 15 (6-23) mg/dl Creatinine 1.07 (0.6-1.2) mg/dl Est Cr Clr Drug Dosing 75.3 ml/min eGFR 67.34 BUN/Creatinine Ratio 14.0 (10-20) Glucose 139 H (70-99(Fasting)) mg/dl Lactate 1.1 (0.4-2.0) mmol/L Calcium 9.4 (8.6-10.3) mg/dl Total Bilirubin 0.8 (0.2-1.0) mg/dl AST 20 (13-39) U/L ALT 16 (7-52) U/L Alkaline Phosphatase 111 H (34-104) U/L Total Protein 7.5 (6.0-8.3) gm/dl Albumin 4.6 (3.4-5.0) gm/dl Globulin 2.9 (2.5-4.0) gm/dl Albumin/Globulin Ratio 1.6 (0.9-2) Lipase 13 (11-82) U/L Procalcitonin 0.18 (0-0.5) ng/ml HCG, Qual Negative (Negative) Adenovirus (PCR) Not Detected (NotDetected) B. pertussis DNA (PCR) Not Detected (NotDetected) B.parapertussis DNA PCR Not Detected (NotDetected) C. pneumoniae DNA (PCR) Not Detected (NotDetected) Coronavirus OC43 (PCR) Not Detected (NotDetected) Coronavirus HKU1 (PCR) Not Detected (NotDetected) Coronavirus 229E (PCR) Not Detected (NotDetected) SARS-CoV-2 (PCR) Not Detected (NotDetected) Coronavirus NL63 (PCR) Not Detected (NotDetected) Human Metapneumovir PCR Not Detected (NotDetected) Influenza Type A (PCR) Not Detected (NotDetected) Influenza Type B (PCR) Not Detected (NotDetected) M. pneumoniae (PCR) Not Detected (NotDetected) Parainfluenza 1 (PCR) Not Detected (NotDetected) Parainfluenza 2 (PCR) Not Detected (NotDetected) Parainfluenza 3 (PCR) Not Detected (NotDetected) Parainfluenza 4 (PCR) Not Detected (NotDetected) RSV (PCR) Not Detected (NotDetected) Entero/Rhino (PCR) Not Detected (NotDetected) Administered Medications Sodium Chloride (Nss) 1,000 mls @ 135 mls/hr IV .Q7H25M [facility] Stop: 09/29/24 21:59 Last Infusion: 09/29/24 11:08 Dose: 0 mls/hr Documented By: Admin: 09/29/24 05:27 Dose: 100 mls/hr Documented By: Infusion: 09/29/24 05:27 Dose: Infused Documented By: Admin: 09/28/24 22:14 Dose: 100 mls/hr Documented By: JABIER Acetaminophen (Ofirmev) 1,000 mg in 100 mls @ 400 mls/hr IV Q8H PRN PRN Reason: Pain First Line Stop: 10/01/24 23:05 Last Infusion: 09/29/24 05:40 Dose: Infused Documented By: Admin: 09/29/24 05:25 Dose: 400 mls/hr Documented By: RAMBO Miscellaneous (Loteprednol Etabonate 0.5%: Order Awaiting Action) 1 each N/A QS DIMAS Stop: 10/29/24 07:59 Last Admin: 09/29/24 11:08 Dose: Not Given Documented By: SWATI Morphine Sulfate (Morphine Sulfate 2 Mg/Ml Carp) 2 mg IV Q4H PRN PRN Reason: Pain Second Line Stop: 10/12/24 23:05 Last Admin: 09/29/24 05:26 Dose: 2 mg Documented By: RAMBO Ondansetron HCl (Ondansetron Inj 2 Mg/Ml 2 Ml Vial) 4 mg IV Q6H PRN PRN Reason: Nausea Stop: 10/28/24 23:05 Last Admin: 09/29/24 05:26 Dose: 4 mg Documented By: RAMBO Discontinued Medications Sodium Chloride (Nss) 1,000 mls @ 999 mls/hr IV .Q1H1M ONE Stop: 09/28/24 19:26 Last Infusion: 09/28/24 20:06 Dose: Infused Documented By: Admin: 09/28/24 18:43 Dose: 999 mls/hr Documented By: JABIER Ceftriaxone Sodium (Rocephin) 2,000 mg in 50 mls @ 100 mls/hr IV NOW STA Stop: 09/28/24 20:56 Last Infusion: 09/28/24 21:26 Dose: Infused Documented By: Admin: 09/28/24 20:51 Dose: 100 mls/hr Documented By: DELANEY Acetaminophen (Ofirmev) 1,000 mg in 100 mls @ 400 mls/hr IV NOW STA Stop: 09/28/24 22:35 Last Infusion: 09/28/24 22:45 Dose: Infused Documented By: Admin: 09/28/24 22:30 Dose: 400 mls/hr Documented By: JABIER Ioversol (Optiray 320 100ml) 93 ml IV ONCE ONE Stop: 09/28/24 19:29 Last Admin: 09/28/24 19:28 Dose: 93 ml Documented By: SARA Ketorolac Tromethamine (Ketorolac Tromethamine 15 Mg/Ml Vial) 10 mg IV NOW ONE Stop: 09/28/24 18:27 Last Admin: 09/28/24 18:43 Dose: 10 mg Documented By: JABIER Ondansetron HCl (Ondansetron Inj 2 Mg/Ml 2 Ml Vial) 4 mg IV NOW STA Stop: 09/28/24 18:27 Last Admin: 09/28/24 18:43 Dose: 4 mg Documented By: JABIER Ondansetron HCl (Ondansetron Inj 2 Mg/Ml 2 Ml Vial) 4 mg IV NOW STA Stop: 09/28/24 22:24 Last Admin: 09/28/24 22:30 Dose: 4 mg Documented By: JABIER Tamsulosin HCl (Tamsulosin Hcl 0.4 Mg Cap) 0.4 mg PO NOW ONE Stop: 09/28/24 21:47 Last Admin: 09/28/24 22:14 Dose: 0.4 mg Documented By: JABIER Imaging Data Radiologist's Impression: Abdomen/Pelvis CT 09/28/24 18:26 Exam(s): CT ABDOMEN + PELVIS With Contrast IV Amt: 93 cc opti 320 EXAM: CT Abdomen and Pelvis With Intravenous Contrast CLINICAL HISTORY: Reason for exam: Right flank pain, fever, recent lithotripsy/cysto. TECHNIQUE: Axial computed tomography images of the abdomen and pelvis with intravenous contrast. CTDI is 26.87 mGy and DLP is 1412.81 mGy-cm. Automated exposure control was utilized for the study. A dose lowering technique was utilized adhering to the principles of ALARA. CONTRAST: Patient received 93 cc Optiray 320 of IV contrast COMPARISON: September 03, 2024 FINDINGS: Lung bases: Unremarkable. No mass. No consolidation. ABDOMEN: Liver: Unremarkable. No mass. Gallbladder and bile ducts: Unremarkable. No calcified stones. No ductal dilation. Pancreas: Unremarkable. No mass. No ductal dilation. Spleen: Unremarkable. No splenomegaly. Adrenals: Unremarkable. No mass. Kidneys and ureters: Moderate right hydronephrosis and hydroureter down to a irregular 9 x 6 mm calculus in the distal right ureter located 3 cm from the ureterovesicular junction. Stomach and bowel: Unremarkable. No obstruction. No mucosal thickening. PELVIS: Appendix: The appendix is normal. Bowel loops are nondilated. No acute inflammatory changes are seen involving the bowel. Bladder: Unremarkable. No mass. Reproductive: There is an IUD in the uterus. ABDOMEN and PELVIS: Intraperitoneal space: 1.8 cm follicle in the left ovary. No free fluid in the pelvis. No free air. Bones/joints: No acute fracture. No dislocation. Soft tissues: Unremarkable. Vasculature: Unremarkable. No abdominal aortic aneurysm. Lymph nodes: Unremarkable. No enlarged lymph nodes. IMPRESSION: 1. Moderate right hydronephrosis and hydroureter down to a irregular 9 x 6 mm calculus in the distal right ureter located 3 cm from the ureterovesicular junction. 2. The appendix is normal. Bowel loops are nondilated. No acute inflammatory changes are seen involving the bowel. Electronically signed by: Marcos Flores MD 09/28/24 20:58 PM Chest X-Ray 09/28/24 18:26 Exam(s): XR CXR 1 VIEW EXAM: XR Chest, 1 View CLINICAL HISTORY: Reason for exam: fever, flank pain. TECHNIQUE: Frontal view of the chest. COMPARISON: No relevant prior studies available. FINDINGS: Lungs: Trace amount of subsegmental atelectasis in the right medial lung base. The lungs are otherwise clear. Pleural space: Unremarkable. No pneumothorax. Heart: Unremarkable. No cardiomegaly. Mediastinum: Unremarkable. Normal mediastinal contour. Bones/joints: Unremarkable. No acute fracture. Upper abdomen: 5 cm elevation of the right diaphragm. There is no pneumoperitoneum under the diaphragm. IMPRESSION: Trace amount of subsegmental atelectasis in the right medial lung base. The lungs are otherwise clear. Electronically signed by: Marcos Flores MD 09/28/24 20:57 PM Discharge Plan Visit Data Chief Complaint: Flank Pain Stated Complaint: RT FLANK, URIINARY SYMPTOMS, JUST HAD KUB SCAN ED Provider: Marcos Fitzgerald ED Midlevel Provider: Saba Crespo Discharge Problem: Hydronephrosis with obstructing calculus, Urinary tract infection Patient Disposition: Admitted As Inpatient Condition: Good Discharge Instructions Interventions: ED Discharge Assessment Last Done: 09/28/24 22:41 Discharge Problem: Urinary tract infection Qualifiers: Urinary tract infection type: acute cystitis Hematuria presence: with hematuria Qualified Code(s): N30.01 - Acute cystitis with hematuria
[2024-09-28 18:41] LABS: Basophils # (auto) 0.05 K/uL (0.00-0.20); Basophils % (auto) 0.3 %; Eosinophils # (auto) 0.02 K/uL (0.00-0.50); Eosinophils % (auto) 0.1 %; Hematocrit (blood only) 42.9 % (37.0-47.0); Hemoglobin 14.8 g/dl (12.0-16.0); Immature Granulocytes # (auto) 0.09 K/uL (0.01-0.20); Immature Granulocytes % (auto) 0.5 %; Lymphocytes # (auto) 1.43 K/uL (1.20-3.40); Lymphocytes % (auto) 7.5 %; Mean Corpuscular Hemoglobin 30.2 pg (25.0-34.0); Mean Corpuscular Hgb Conc 34.5 g/dL (32.0-36.0); Mean Corpuscular Volume 87.6 fL (80.0-100.0); Mean Platelet Volume 10.8 fL (9.4-12.4); Monocytes # (auto) 1.02 K/uL (0.11-0.59); Monocytes % (auto) 5.4 %; Neutrophils % (auto) 86.2 %; Platelet Count 189 K/uL (130-400); RDW Coefficient of Variation 12.5 % (11.5-14.5); RDW Standard Deviation 39.7 fL (36.4-46.3); White Blood Count 19.01 K/ul (4.8-10.8)
[2024-09-28] MEDS: KETOROLAC TROMETHAMINE 15 MG/ML VIAL IV ONE (18:43)
[2024-09-28] MEDS: SODIUM CHLORIDE 0.9% 1,000 ML IV ONE (18:43)
[2024-09-28] MEDS: ONDANSETRON INJ 2 MG/ML 2 ML VIAL IV STA ×2 (18:43→22:30)
[2024-09-28 18:54] LABS: Pregnancy Test, Serum Negative (Negative)
[2024-09-28 19:05] LABS: INR 0.9 (0.9-1.1); Prothrombin Time 10.3 Seconds (9.0-12.0)
[2024-09-28 19:13] LABS: Albumin Globulin Ratio 1.6 (0.9-2); Albumin Level 4.6 gm/dl (3.4-5.0); Bilirubin,Total 0.8 mg/dl (0.2-1.0); Calcium 9.4 mg/dl (8.6-10.3); Creatinine Clr Calc Pharmacy 75.3 ml/min; Globulin 2.9 gm/dl (2.5-4.0); Total Protein 7.5 gm/dl (6.0-8.3)
[2024-09-28] MEDS: OPTIRAY 320 100ml IV ONE (19:28)
[2024-09-28 19:48] LABS: Adenovirus PCR Not Detected (NotDetected); Bordetella parapertussis PCR Not Detected (NotDetected); Bordetella pertussis PCR Not Detected (NotDetected); Chlamydia pneumoniae PCR Not Detected (NotDetected); Coronavirus 229E PCR Not Detected (NotDetected); Coronavirus CoV-2 (COVID19)PCR Not Detected (NotDetected); Coronavirus HKU1 PCR Not Detected (NotDetected); Coronavirus NL63 PCR Not Detected (NotDetected); Coronavirus OC43PCR Not Detected (NotDetected); Human Metapneumovirus PCR Not Detected (NotDetected); Influenza A PCR Not Detected (NotDetected); Influenza B PCR Not Detected (NotDetected); Mycoplasma pneumoniae PCR Not Detected (NotDetected); Parainfluenza Virus 1 PCR Not Detected (NotDetected); Parainfluenza Virus 2 PCR Not Detected (NotDetected); Parainfluenza Virus 3 PCR Not Detected (NotDetected); Parainfluenza Virus 4 PCR Not Detected (NotDetected); Respiratory Syncytial VirusPCR Not Detected (NotDetected); Rhinovirus/Enterovirus PCR Not Detected (NotDetected)
[2024-09-28] MEDS: cefTRIAXone SODIUM 2,000 MG/50 ML BAG IV STA (20:51)
--- NOTE | 2024-09-28 20:58 | XRay Report ---
Exam(s): XR CXR 1 VIEW EXAM: XR Chest, 1 View CLINICAL HISTORY: Reason for exam: fever, flank pain. TECHNIQUE: Frontal view of the chest. COMPARISON: No relevant prior studies available. FINDINGS: Lungs: Trace amount of subsegmental atelectasis in the right medial lung base. The lungs are otherwise clear. Pleural space: Unremarkable. No pneumothorax. Heart: Unremarkable. No cardiomegaly. Mediastinum: Unremarkable. Normal mediastinal contour. Bones/joints: Unremarkable. No acute fracture. Upper abdomen: 5 cm elevation of the right diaphragm. There is no pneumoperitoneum under the diaphragm. IMPRESSION: Trace amount of subsegmental atelectasis in the right medial lung base. The lungs are otherwise clear. Electronically signed by: Marcos Flores MD 09/28/24 20:57 PM
--- NOTE | 2024-09-28 20:59 | CT Scan Report ---
Exam(s): CT ABDOMEN + PELVIS With Contrast IV Amt: 93 cc opti 320 EXAM: CT Abdomen and Pelvis With Intravenous Contrast CLINICAL HISTORY: Reason for exam: Right flank pain, fever, recent lithotripsy/cysto. TECHNIQUE: Axial computed tomography images of the abdomen and pelvis with intravenous contrast. CTDI is 26.87 mGy and DLP is 1412.81 mGy-cm. Automated exposure control was utilized for the study. A dose lowering technique was utilized adhering to the principles of ALARA. CONTRAST: Patient received 93 cc Optiray 320 of IV contrast COMPARISON: September 03, 2024 FINDINGS: Lung bases: Unremarkable. No mass. No consolidation. ABDOMEN: Liver: Unremarkable. No mass. Gallbladder and bile ducts: Unremarkable. No calcified stones. No ductal dilation. Pancreas: Unremarkable. No mass. No ductal dilation. Spleen: Unremarkable. No splenomegaly. Adrenals: Unremarkable. No mass. Kidneys and ureters: Moderate right hydronephrosis and hydroureter down to a irregular 9 x 6 mm calculus in the distal right ureter located 3 cm from the ureterovesicular junction. Stomach and bowel: Unremarkable. No obstruction. No mucosal thickening. PELVIS: Appendix: The appendix is normal. Bowel loops are nondilated. No acute inflammatory changes are seen involving the bowel. Bladder: Unremarkable. No mass. Reproductive: There is an IUD in the uterus. ABDOMEN and PELVIS: Intraperitoneal space: 1.8 cm follicle in the left ovary. No free fluid in the pelvis. No free air. Bones/joints: No acute fracture. No dislocation. Soft tissues: Unremarkable. Vasculature: Unremarkable. No abdominal aortic aneurysm. Lymph nodes: Unremarkable. No enlarged lymph nodes. IMPRESSION: 1. Moderate right hydronephrosis and hydroureter down to a irregular 9 x 6 mm calculus in the distal right ureter located 3 cm from the ureterovesicular junction. 2. The appendix is normal. Bowel loops are nondilated. No acute inflammatory changes are seen involving the bowel. Electronically signed by: Marcos Flores MD 09/28/24 20:58 PM
--- NOTE | 2024-09-28 21:40 | History & Physical Report ---
Date of Service September 28, 2024 Assessment & Plan (1) Right ureteral stone: (2) Urinary tract infection: (3) Hydronephrosis with obstructing calculus: (4) Depression: (5) Hypertension: Plan Yaneth is a 38F w/ PMH of nephrolithiasis, hirsutism, depression, HTN, and hypothyroidism who presented to the emergency department 09/28/24 for evaluation of right flank pain. Patient admitted for urologic intervention planned 09/29/24. R Nephrolithiasis Hydronephrosis/Hydroureter - Original lithotripsy w/ stenting 09/04, repeat lithotripsy w/ stenting 09/18 - SIRS + w/ Urinary source: Leukocytosis, tachycardia, fever at home - Urinalysis w/ culture pending - Abx received prior to BC, but ordered anyway given sepsis on presentation Clinically relevant if positive, but does not rule out bacteremia at presen tation if negative - CTAP w/ right hydronephrosis, hydroureter, and irregular 9 x 6 mm calculus 3 cm from the UVJ - Continue Ceftriaxone 2g Q24h - Continue IVFs, increased to maintenance IVF rate - Started on Flomax daily for expulsive therapy - Tylenol, Zofran, Morphine PRN - Urology consultation, appreciate recommendations Cystoscopy and other necessary interventions by Dr. Valadez on 09/29/2024 Chronic Conditions - HTN: BP stable, PO meds held - Depression: PO meds held while NPO, restart post-procedure - Hypothyroidism: No active home meds Code: Full DVT: SCD Diet: NPO Dispo: Urology intervention * Restart PO home medications post-procedure History of Present Illness Chief Complaint: Flank Pain Primary Care Provider: Jerome Jeffrey MD Yaneth is a 38F w/ PMH of nephrolithiasis, hirsutism, depression, HTN, and hypothyroidism who presented to the emergency department 09/28/24 for evaluation of right flank pain. Patient notes that she started having right sided flank and back pain yesterday w/ associated nausea and no emesis. Throughout the day today, patients's nausea progressed and she notes the development of a fever of 102+, thus she came into the ED. She has been taking ibuprofen PRN w/o benefit. Patient was recently treated for right nephrolithiasis w/ hydronephrosis and hydroureter by Dr. Valadez on 09/04/24 with lithotripsy and stent placement. She was discharged with Ciprofloxacin 500 mg BID, Flomax, and Oxybutynin. Repeat ureteroscopy and lithotripsy with stent exchange was performed 09/18/24, but the patient notes the stent dislodged 09/19/24. She notes that over the last 2-3 days the pain has become progressively worse and she is now experiencing fatigue, chills, body aches, and dizziness. She denies hematuria and dysuria and continues to urinate regularly. No changes in bowel movements. She continues to hydrate as normal, but has had a poor appetite. While the pain in her flank has been ongoing, she does note that the pain has been radiating into her abdomen/suprapubic area over since yesterday. Allergies Allergy/AdvReac Type Severity Reaction Status Date / Time hydrochlorothiazide AdvReac Intermediate Photosensit Verified 09/18/24 11:18 ivity Home Medications Medication Instructions Recorded Confirmed Type cetirizine 10 mg tablet (Zyrtec) 10 mg PO HS 06/10/19 09/28/24 History levonorgestrel 21 mcg/24 hr (up to 1 device intrauterine UD #1 ea 06/10/19 09/28/24 History 8 years) 52 mg intrauterine device CBD 25 mg PO HS PRN Pain 08/27/22 09/28/24 History omega-3 acid ethyl esters 2,500 mg PO QAM 08/27/22 09/28/24 History dextroamphetamine-amphetamine ER 37.5 mg PO QAM 05/18/24 09/28/24 History 37.5 mg capsule, 3 bead, ext rel 24hr (Mydayis) cholecalciferol (vitamin D3) 25 25 mcg PO QAM #30 caps 09/05/24 09/28/24 Rx mcg (1,000 unit) capsule phenazopyridine 100 mg tablet 100 mg PO TID PRN Urinary symptoms 09/06/24 09/28/24 Rx (Pyridium) #60 tabs duloxetine 60 mg capsule,delayed 60 mg PO QAM 09/12/24 09/28/24 History release ketorolac 10 mg tablet 10 mg PO Q6H PRN Pain 09/12/24 09/18/24 History lifitegrast 5 % eye drops in a 1 drp ophthalmic (eye) BID 09/12/24 09/28/24 History dropperette (Xiidra) lisinopril 5 mg tablet 5 mg PO HS 09/12/24 09/28/24 History loteprednol etabonate 0.5 % eye 1 drp OPB BID 09/12/24 09/28/24 History drops,suspension tamsulosin 0.4 mg capsule (Flomax) 0.4 mg PO QAM 09/12/24 09/28/24 History ciprofloxacin HCl 500 mg tablet 500 mg PO BID #6 tabs 09/18/24 09/28/24 Rx (Cipro) Past Med/Surg History Problem List (Updated 09/29/24 @ 01:59 by Saba Crespo PA-C) Vitamin D deficiency Encounter for pre-operative examination Right ureteral stone (Acute) Urinary tract infection (Acute) Hydronephrosis with obstructing calculus (Acute) Breast discharge Hirsutism Depression Hypothyroidism IUD (intrauterine device) in place Mirena 04/2019 Hypertension Medical History Hx of migraines as teenager Kidney stone IUD (intrauterine device) in place History of hypothyroidism not for last 8 years (~2015, with ) Hypertension Depression Surgical History S/P cystoscopy with ureteral stent placement H/O oral surgery early 20's>wisdom teeeth H/O section x2 Previous delivery affecting duplicate Family History Father Alcoholism Grandmother (Maternal) Diabetes Grandfather (Paternal) Cancer Grandmother (Paternal) Cancer Grandfather (Maternal) Cancer Uncle Cancer Colorectal cancer Denies family history of Ovarian cancer Prostate cancer Myocardial infarction Breast cancer Social History Smoking Status: Never smoker Second Hand Exposure: No; Do You Dip or Chew Tobacco: No; Tobacco Cessation Education Requested by Patient: No Hx Alcohol Use: No (drink occasionally) Hx Substance Use: Yes Last Used Substance Other:: over a month ago Substance Use Type Other:: has marijuana card Preferred Language: Surinamese Communication Ability: Effective Chief Minister Required: No Beliefs That Will Affect Care: None marital status: Current Living Situation: Spouse and Family Current Living Situation Comment: lives with and 2 kids Other Information That Helps Us Care for You: No Feels Safe at Home: Yes Sunscreen Use: Yes Assistive Devices: Glasses Physical Exam Physical Exam: Gen: NAD, uncomfortable, interactive HEENT: Supple, no LAD, no thyromegaly, no JVD Resp:Non-labored, no wheezing/rhonchi/rales, CTAB CV:tachycardic, regular rhythm, normal S1/S2, no M/R/G Abd: Soft, non-distended, right flank TTP/suprapubic TPP, normoactive bowels, no masses, R CVA Tenderness Extr: 2+ dp bilaterally, no edema Skin: No rashes lesions or erythema Results & Data Results & Data Vital Signs (Past 12 Hours) Vital Signs Temp Pulse Pulse Resp BP BP Pulse Ox 09/28/24 20:06 106 H 16 133/76 97 09/28/24 18:49 114 H 09/28/24 18:47 106 H 16 131/91 99 09/28/24 18:39 99 09/28/24 17:57 37 C 135 H 20 144/81 H 98 O2 Del Method 09/28/24 20:06 Room Air 09/28/24 18:49 09/28/24 18:47 Room Air 09/28/24 18:39 Room Air 09/28/24 17:57 Supervising Physician Co-Signing Physician Notes Attending addendum: I have physically seen this patient, have supervised the medical residents activities, and agree with the H&P unless as otherwise noted. Assessment and Plan: 9 x 6 mm distal right ureteral calculus/moderate right hydroureteronephrosis Follow urine culture and sensitivity From the ED received the following: Normal saline 1 L bolus, Toradol 10 mg IV, Zofran 4 mg IV, and ceftriaxone 2 g IV Continue ceftriaxone 2 g IV every 24 hours Maintenance IV fluids as noted Tamsulosin 0.4 mg p.o. daily Pain control with serial doses of Tylenol and morphine as noted Consult urology Hypertension- Meds on hold while n.p.o. Depression- Meds on hold while n.p.o. Resident Activity Tracking Resident Involvement: Resident Care Provided Care Provided: Adult [facility] Medicine
--- NOTE | 2024-09-28 21:42 | Urology Consultation ---
Date of Consultation September 28, 2024 Assessment & Plan (1) Hydronephrosis with obstructing calculus: I discussed with the treating clinician in the emergency department and the patient is being admitted on the hospitalist service from a urologic perspective we recommend the following: Patient has received antibiotics in form of Rocephin and these should continue. An appropriate urine culture has been sent and that culture results should be followed for and antibiotics be tailored based on these results Recommend hydrating the patient with intravenous fluids Follow serial labs Initiate Flomax for expulsive therapy Provide analgesics Provide antiemetics as needed Provide antipyretics as needed Recommend keeping the patient n.p.o. for the present time At the present time the patient is nontoxic-appearing. She is normotensive with slight tachycardia (her heart rate is approximately 110 at the time of my interview). She has been afebrile since arrival to the emergency department. Will tentatively plan on having the patient undergo cystoscopy and other necessary interventions by Dr. Valadez on 09/29/2024. If the patient would decompensate this procedure can be moved to an earlier time Additional recommendations be forthcoming based on her clinical course as unfo lds Supervising Physician Co-Signing Physician Notes Agree with above assessment. Patient has been seen and examined personally. I also reviewed her imaging upon arrival in the ER as well as her lab work. She still appears to have stone in the area of previous stone impactionI recently operated on her and did not see stone in the lumen of the ureter, however given her significant impaction I wonder if a portion of the stone that was pushed into the mural lining of the ureter has now migrated back towards the lumen. We will plan to intervene this morning. Cystoscopy and stent placement but if not infected actively and urine appears clear, would likely offer ureteroscopy with an attempt to clear that ureter of residual stone. History of Present Illness Reason for Consultation: Nephrolithiasis History of Present Illness This is a 38-year-old female known to [facility] physician group urology. Patient has had a cystoscopy with laser lithotripsy and right ureteral stent placement on 09/04/2024. Patient also required a cystoscopy with laser lithotripsy and stent exchange on 09/18/2024. The patient does note that after her most recent procedure the stent came out the following day. She says that she did complete a 3-day course of antibiotics following her most recent procedure. She presented to the emergency department today as she developed some right- sided flank pain that radiated to the front of her abdomen yesterday. She says she has had shakes and chills and reports a temperature as high as 102 which she took via oral thermometer. She has had no nausea or vomiting. She denies any dysuria or urinary frequency and denies hematuria. She does note that her most recent oral intake was solid food at approximate 11:00 AM today and some water approximately 4 hours ago. The patient notes that since her most recent issues began she has not taken any antibiotics. Since arrival to the hospital patient has had labs and imaging which I independently reviewed. Chest x-ray showed no evidence of pneumonia. A CT scan of the abdomen pelvis showed the patient had moderate right hydronephrosis and a noted 9 x 6 mm kidney stone in the distal right ureter. Labs including CBC were white blood cell count was elevated 19.0. Hemoglobin and hematocrit as well as the platelet count were normal. Coagulation studies were normal. Chemistry profile showed sodium was 135. Potassium, BUN, and creatinine were normal. A test was noted to be negative. Lactic acid level was not elevated. The patient did have a bio fire study checked and all viruses tested for were negative. Patient did have an outpatient urinalysis earlier today and this showed the patient had 3+ leukocyte Estrace and pyuria with greater than 50 white blood cells per high-power field. The specimen was negative for nitrites and there is no bacteria on the study. At the time of my interview she was resting comfortably in bed and she was in no distress. Allergies Allergy/AdvReac Type Severity Reaction Status Date / Time hydrochlorothiazide AdvReac Intermediate Photosensit Verified 09/18/24 11:18 ivity Home Medications Medication Instructions Recorded Confirmed Type cetirizine 10 mg tablet (Zyrtec) 10 mg PO HS 06/10/19 09/28/24 History levonorgestrel 21 mcg/24 hr (up to 1 device intrauterine UD #1 ea 06/10/19 09/28/24 History 8 years) 52 mg intrauterine device CBD 25 mg PO HS PRN Pain 08/27/22 09/28/24 History omega-3 acid ethyl esters 2,500 mg PO QAM 08/27/22 09/28/24 History dextroamphetamine-amphetamine ER 37.5 mg PO QAM 05/18/24 09/28/24 History 37.5 mg capsule, 3 bead, ext rel 24hr (Mydayis) cholecalciferol (vitamin D3) 25 25 mcg PO QAM #30 caps 09/05/24 09/28/24 Rx mcg (1,000 unit) capsule phenazopyridine 100 mg tablet 100 mg PO TID PRN Urinary symptoms 09/06/24 09/28/24 Rx (Pyridium) #60 tabs duloxetine 60 mg capsule,delayed 60 mg PO QAM 09/12/24 09/28/24 History release ketorolac 10 mg tablet 10 mg PO Q6H PRN Pain 09/12/24 09/18/24 History lifitegrast 5 % eye drops in a 1 drp ophthalmic (eye) BID 09/12/24 09/28/24 History dropperette (Xiidra) lisinopril 5 mg tablet 5 mg PO HS 09/12/24 09/28/24 History loteprednol etabonate 0.5 % eye 1 drp OPB BID 09/12/24 09/28/24 History drops,suspension tamsulosin 0.4 mg capsule (Flomax) 0.4 mg PO QAM 09/12/24 09/28/24 History ciprofloxacin HCl 500 mg tablet 500 mg PO BID #6 tabs 09/18/24 09/28/24 Rx (Cipro) Patient History Medical History Hx of migraines as teenager Kidney stone IUD (intrauterine device) in place History of hypothyroidism not for last 8 years (~2015, with ) Hypertension Depression Surgical History S/P cystoscopy with ureteral stent placement H/O oral surgery early s>wisdom teeeth H/O section x2 Previous delivery affecting duplicate Family History Father Alcoholism Grandmother (Maternal) Diabetes Grandfather (Paternal) Cancer Grandmother (Paternal) Cancer Grandfather (Maternal) Cancer Uncle Cancer Colorectal cancer Denies family history of Ovarian cancer Prostate cancer Myocardial infarction Breast cancer Social History Smoking Status: Never smoker Second Hand Exposure: No; Do You Dip or Chew Tobacco: No; Tobacco Cessation Education Requested by Patient: No Hx Alcohol Use: No (drink occasionally) Hx Substance Use: Yes Last Used Substance Other:: over a month ago Substance Use Type Other:: has marijuana card Preferred Language: Nepali Communication Ability: Effective Hebrew Cantor Required: No Beliefs That Will Affect Care: None marital status: Current Living Situation: Spouse and Family Current Living Situation Comment: lives with and 2 kids Other Information That Helps Us Care for You: No Feels Safe at Home: Yes Sunscreen Use: Yes Assistive Devices: Glasses Review of Systems Review of Systems: All systems reviewed & are unremarkable except as noted in HPI & below Physical Exam Constitutional: WD/WN, vitals as above Eyes: no conjunctival abnormality ENMT: Ears: no hearing impairment and no external ear abnormality Mouth: no oropharynx abnormality Neck: trachea midline Respiratory: normal respiratory effort; no respiratory distress and no labored breathing Cardiovascular: Rate/Rhythm: regular rate and regular rhythm Vessels: dorsalis pedis pulses present and radial pulses present Gastrointestinal (Abdomen): Abdomen soft and nondistended. It is nonrigid. There is no pain with palpation. Musculoskeletal: No calf tenderness, feet are warm and well-perfused Skin: no rashes Neurologic: moves all extremities Psychiatric: A+Ox3, euthymic affect Genitourinary: Slight CVA tenderness with percussion on the right, no CVA tenderness with percussion on the left Results & Data Vital Signs (Past 12 Hours) Vital Signs Temp Pulse Pulse Resp BP BP Pulse Ox 09/28/24 20:06 106 H 16 133/76 97 09/28/24 18:49 114 H 09/28/24 18:47 106 H 16 131/91 99 09/28/24 18:39 99 09/28/24 17:57 37 C 135 H 20 144/81 H 98 O2 Del Method 09/28/24 20:06 Room Air 09/28/24 18:49 09/28/24 18:47 Room Air 09/28/24 18:39 Room Air 09/28/24 17:57 PG Care Time/CCT Total # of Minutes Spent Total Time Spent with Patient: Total time spent is greater than 50% in coordination of care (as documented) at patient's floor/unit and/or counseling patient: Coding Level of Care Code 63055 IN/OBS CONSULT LVL 5,80M Diagnoses Hydronephrosis with obstructing calculus N13.2
[2024-09-28] MEDS: SODIUM CHLORIDE 0.9% 1,000 ML IV SCH (22:14)
[2024-09-28] MEDS: TAMSULOSIN HCL 0.4 MG CAP PO ONE (22:14)
[2024-09-28] MEDS: ACETAMINOPHEN 1,000 MG/100 ML VIAL IV STA (22:30)
[2024-09-28] MEDS ORDERED: [UNRECOGNIZED DRUG - OTHER] IU SCH (23:06)
[2024-09-28] MEDS ORDERED: LEVONORGESTREL IU SCH (23:06)
[2024-09-28] MEDS ORDERED: ARTIFICIAL TEARS OP PRN (23:33)
[2024-09-29] MEDS: ACETAMINOPHEN 1,000 MG/100 ML VIAL IV PRN (05:25)
[2024-09-29] MEDS: MoRPHine SULFATE 2 MG/ML CARP IV PRN (05:26)
[2024-09-29] MEDS: ONDANSETRON INJ 2 MG/ML 2 ML VIAL IV PRN (05:26)
--- NOTE | 2024-09-29 07:36 | Hospitalist Progress Note ---
Date of Service September 29, 2024 Assessment & Plan (1) Right ureteral stone: (2) Urinary tract infection: (3) Hydronephrosis with obstructing calculus: (4) Depression: (5) Hypertension: Plan Yaneth is a 38F w/ PMH of nephrolithiasis, hirsutism, depression, HTN, and hypothyroidism who presented to the emergency department 09/28/24 for evaluation of right flank pain. Patient admitted for urologic intervention planned 09/29/24. R Nephrolithiasis Hydronephrosis/Hydroureter - Original lithotripsy w/ stenting 09/04, repeat lithotripsy w/ stenting 09/18 - SIRS + w/ Urinary source: Leukocytosis, tachycardia, fever at home - Urinalysis w/ culture pending - Abx received prior to BC, but ordered anyway given sepsis on presentation Clinically relevant if positive, but does not rule out bacteremia at presentation if negative - CTAP w/ right hydronephrosis, hydroureter, and irregular 9 x 6 mm calculus 3 cm from the UVJ - Continue Ceftriaxone 2g Q24h - Continue IVFs, increased to maintenance IVF rate - Continue Flomax daily for expulsive therapy - Tylenol, Zofran, Morphine PRN - Urology consultation, appreciate recommendations Pt to have Cystoscopy and other necessary interventions by Dr. Valadez on 09/29/2024 Chronic Conditions - HTN: BP stable, PO meds held - Depression: PO meds held while NPO, restart post-procedure - Hypothyroidism: No active home meds Code: Full DVT: SCD Diet: NPO Dispo: Urology intervention * Restart PO home medications post-procedure Admission and Anticipated Discharge Date Admission Date: September 28, 2024 Supervising Physician Co-Signing Physician Notes I personally examined the patient and verified all garcia points of history and exam, discussed case, and agree with decision making with Dr Sears feeling better than last night. for procedure later today vitals noted nad heent nc at mmm breathing unlabored no accessory muscles good effort skin no rashes no pallor or icterus complicated UTI w obstructing stone, sepsis POA - Cx pending, sepsis improved, continue ceftriaxone, for OR today. appreciate urology input as well. Subjective Pt is a 38 yo female with recent bouts with nephrolithiasis and s/p lithotripsy w/ stenting on 09/04 and 09/18. Pt presented to ED with flank pain, fever, and nausea. Nephrolithiasis noted on CTAP. Urology consulted and pt is scheduled for cystoscopy later this morning. This morning, pt reports she continues with right flank pain, but better controlled than yesterday when in ED. She denies nausea, vomiting, fevers, SOB, or CP. Review of Systems Review of Systems: As per HPI Physical Exam Physical Exam: Gen: NAD, uncomfortable, interactive HEENT: Supple, no LAD, no thyromegaly, no JVD Resp:Non-labored, no wheezing/rhonchi/rales, CTAB CV:tachycardic, regular rhythm, normal S1/S2, no M/R/G Abd: Soft, non-distended, right flank TTP/suprapubic TPP, normoactive bowels, no masses, R CVA Tenderness Extr: 2+ dp bilaterally, no edema Skin: No rashes lesions or erythema Results & Data Results & Data Vital Signs (Past 12 Hours) Vital Signs Temp Pulse Pulse Resp BP BP Pulse Ox 09/29/24 07:19 36.7 C 98 H 20 106/67 94 09/29/24 03:31 36.7 C 84 16 116/78 97 09/29/24 00:35 09/28/24 23:30 105 H 09/28/24 23:06 37.7 C H 94 H 18 127/77 96 09/28/24 22:41 111 H 18 126/79 94 09/28/24 22:11 109 H 20 137/78 94 09/28/24 20:06 106 H 16 133/76 97 O2 Del Method 09/29/24 07:19 Room Air 09/29/24 03:31 Room Air 09/29/24 00:35 Room Air 09/28/24 23:30 09/28/24 23:06 Room Air 09/28/24 22:41 Room Air 09/28/24 22:11 Room Air 09/28/24 20:06 Room Air Resident Activity Tracking Resident Involvement: Resident Care Provided Care Provided: Adult Hospital Medicine (2) Urinary tract infection Hematuria presence: with hematuria Urinary tract infection type: acute cystitis Qualified Code(s): N30.01 - Acute cystitis with hematuria
[2024-09-29 08:28] LABS: Hematocrit (blood only) 37.8 % (37.0-47.0); Hemoglobin 12.7 g/dl (12.0-16.0); Mean Corpuscular Hemoglobin 29.6 pg (25.0-34.0); Mean Corpuscular Hgb Conc 33.6 g/dL (32.0-36.0); Mean Corpuscular Volume 88.1 fL (80.0-100.0); Mean Platelet Volume 10.5 fL (9.4-12.4); Platelet Count 155 K/uL (130-400); RDW Coefficient of Variation 12.7 % (11.5-14.5); RDW Standard Deviation 40.7 fL (36.4-46.3); Red Blood Count 4.29 M/uL (4.20-5.40); White Blood Count 17.38 K/ul (4.8-10.8)
[2024-09-29 08:45] LABS: Albumin Globulin Ratio 1.3 (0.9-2); Albumin Level 3.5 gm/dl (3.4-5.0); BUN Creatinine Ratio 12.6 (10-20); Bilirubin,Total 0.7 mg/dl (0.2-1.0); Calcium 8.3 mg/dl (8.6-10.3); Globulin 2.8 gm/dl (2.5-4.0); Potassium 3.7 mmol/L (3.5-5.1); Total Protein 6.3 gm/dl (6.0-8.3)
--- NOTE | 2024-09-29 09:30 | History & Physical Bridge Note ---
Date of Service September 29, 2024 History & Physical Bridge Note I have examined the patient, reviewed the History & Physical and in the interval since the performance of the History & Physical I have noted the following changes of clinical significance: no changes noted
--- NOTE | 2024-09-29 09:32 | Urology Progress Note ---
Date of Service September 29, 2024 Assessment & Plan (1) Right ureteral stone: (2) Hydronephrosis with obstructing calculus: Plan Significant right hydro secondary to obstructing right distal ureteral calculus Next she underwent recent intervention where we freed a substantial amount of stone from this location, however it was significantly impacted into the ureter and I suspect that a fragment of the impacted stone that was maybe not visible during her recent surgery is now migrated back into the lumen of the ureter. We will plan for intervention in the form of stent, and if the safe and possible I would like to try to extract or treat the stone that is in the ureter Risks, benefits, expectations were reviewed and consent is on the chart Admission and Anticipated Discharge Date Admission Date: September 28, 2024 Subjective Subjectively improved this morning from yesterday No longer tachycardic She did have a Tmax of 37.7 after admission No chills or significant dysuria She reports that her temperature previously increased when she was extremely active Physical Exam Constitutional: well developed and well nourished Neck: neck nontender Respiratory: normal respiratory effort; no respiratory distress and does not use accessory muscles Cardiovascular: Rate/Rhythm: regular rate Vessels: radial pulses present Extremities: no edema Gastrointestinal (Abdomen): Inspection/Auscultation: abdomen normal to inspection Percussion/Palpation: abdomen soft; abdomen nontender and no guarding Musculoskeletal: Head/Neck/Chest: normocephalic and head atraumatic Extremities: extremities normal to inspection Skin: no rashes and no lesions Trauma: no evidence of skin trauma Neurologic: awake; not obtunded Speech / Cognition: normal speech Motor/Sensory: no tremor Psychiatric: Orientation: alert and oriented x 3 Lymphatic: no lymphadenopathy Results & Data Vital Signs (Past 12 Hours) Vital Signs Temp Pulse Pulse Resp BP BP Pulse Ox 09/29/24 07:19 36.7 C 98 H 20 106/67 94 09/29/24 03:31 36.7 C 84 16 116/78 97 09/29/24 00:35 09/28/24 23:30 105 H 09/28/24 23:06 37.7 C H 94 H 18 127/77 96 09/28/24 22:41 111 H 18 126/79 94 09/28/24 22:11 109 H 20 137/78 94 O2 Del Method 09/29/24 07:19 Room Air 09/29/24 03:31 Room Air 09/29/24 00:35 Room Air 09/28/24 23:30 09/28/24 23:06 Room Air 09/28/24 22:41 Room Air 09/28/24 22:11 Room Air PG Care Time/CCT Total # of Minutes Spent Total Time Spent with Patient: Total time spent is greater than 50% in coordination of care (as documented) at patient's floor/unit and/or counseling patient: Coding Level of Care Code 66817 SUB INP/OBS CARE 2/35MIN Diagnoses Right ureteral stone N20.1 Hydronephrosis with obstructing calculus N13.2
[2024-09-29] MEDS ORDERED: MIDAZOLAM HCL 1 MG/ML 2ML VIAL ONE (11:16)
[2024-09-29] MEDS ORDERED: fentaNYL citrate PF 100 MCG/2 ML VIAL ONE (11:16)
[2024-09-29] MEDS ORDERED: PROPOFOL IV EMULSION 10 MG/ML 20 ML VIAL IV ONE (11:17)
[2024-09-29] MEDS ORDERED: LIDOCAINE 2% 2 ML VIAL/AMP(20MG/ML) INFIL ONE (11:17)
[2024-09-29] MEDS ORDERED: ONDANSETRON INJ 2 MG/ML 2 ML VIAL ONE (11:17)
[2024-09-29] MEDS ORDERED: PROMETHAZINE HCL 6.25 MG in SODIUM CHLORIDE 0.9% 50 ML IV PRN (11:31)
[2024-09-29] MEDS ORDERED: ONDANSETRON INJ 2 MG/ML 2 ML VIAL IV PRN (11:31)
[2024-09-29] MEDS ORDERED: ATROPINE SULFATE 0.1 MG/ML 10ML SYR IV PRN (11:31)
[2024-09-29] MEDS ORDERED: HYDROmorphone INJ 2 MG/ML SYR/VIAL IV PRN (11:31)
[2024-09-29] MEDS ORDERED: fentaNYL citrate PF 100 MCG/2 ML VIAL IV PRN (11:31)
[2024-09-29] MEDS ORDERED: ePHEDrine sulfate 50 MG/ML AMP IV PRN (11:31)
--- NOTE | 2024-09-29 11:31 | Anesthesiology Consultation ---
Date of Service September 29, 2024 Assessment & Plan Chart Review Chart Review: Acceptable Risk for Surgery Consults Requested none ASA ASA2 Proposed Anesthesia Anesthesia Type: General History Surgery Operation Date: 09/29/24 09:30 Proposed Procedures p Cystoscopy; Right Ureteral Stent Placement, possible laser lithotripsy - Jerome Valadez MD Height/Weight Height: 5 ft 2 in Weight: 96.2 kg Allergies Allergy/AdvReac Type Severity Reaction Status Date / Time hydrochlorothiazide AdvReac Intermediate Photosensit Verified 09/18/24 11:18 ivity Medications Home Medications Medication Instructions Recorded Confirmed Last Taken cetirizine 10 mg tablet (Zyrtec) 10 mg PO HS 06/10/19 09/28/24 09/17/24 23:30 levonorgestrel 21 mcg/24 hr (up to 1 device intrauterine UD #1 ea 06/10/19 09/28/24 Unknown 8 years) 52 mg intrauterine device CBD 25 mg PO HS PRN Pain 08/27/22 09/28/24 Unknown omega-3 acid ethyl esters 2,500 mg PO QAM 08/27/22 09/28/24 09/15/24 dextroamphetamine-amphetamine ER 37.5 mg PO QAM 05/18/24 09/28/24 09/17/24 10:00 37.5 mg capsule, 3 bead, ext rel 24hr (Mydayis) cholecalciferol (vitamin D3) 25 25 mcg PO QAM #30 caps 09/05/24 09/28/24 09/18/24 10:30 mcg (1,000 unit) capsule phenazopyridine 100 mg tablet 100 mg PO TID PRN Urinary symptoms 09/06/24 09/28/24 09/18/24 10:30 (Pyridium) #60 tabs duloxetine 60 mg capsule,delayed 60 mg PO QAM 09/12/24 09/28/24 09/18/24 10:30 release ketorolac 10 mg tablet 10 mg PO Q6H PRN Pain 09/12/24 09/18/24 Unknown lifitegrast 5 % eye drops in a 1 drp ophthalmic (eye) BID 09/12/24 09/28/24 Unknown dropperette (Xiidra) lisinopril 5 mg tablet 5 mg PO HS 09/12/24 09/28/24 09/17/24 23:30 loteprednol etabonate 0.5 % eye 1 drp OPB BID 09/12/24 09/28/24 Unknown drops,suspension tamsulosin 0.4 mg capsule (Flomax) 0.4 mg PO QAM 09/12/24 09/28/24 09/18/24 10:30 ciprofloxacin HCl 500 mg tablet 500 mg PO BID #6 tabs 09/18/24 09/28/24 Unknown (Cipro) Active Medications Generic Name Dose Route Start Last Admin Trade Name Freq PRN Reason Stop Dose Admin Sodium Chloride 1,000 mls @ 135 mls/hr 09/28/24 22:00 09/29/24 11:08 Nss IV 09/29/24 21:59 0 mls/hr .Q7H25M DIMAS Infusion Acetaminophen 1,000 mg in 100 mls @ 400 mls/hr 09/28/24 23:06 09/29/24 05:40 Ofirmev IV 10/01/24 23:05 Infused Q8H PRN Infusion Pain First Line Miscellaneous 1 each 09/29/24 08:00 09/29/24 11:08 Loteprednol Etabonate 0.5%: Order Awaiting Action N/A 10/29/24 07:59 Not Given QS DIMAS Morphine Sulfate 2 mg 09/28/24 23:06 09/29/24 05:26 Morphine Sulfate 2 Mg/Ml Carp IV 10/12/24 23:05 2 mg Q4H PRN Administration Pain Second Line Ondansetron HCl 4 mg 09/28/24 23:06 09/29/24 05:26 Ondansetron Inj 2 Mg/Ml 2 Ml Vial IV 10/28/24 23:05 4 mg Q6H PRN Administration Nausea NPO Date Last Intake of Fluids: 09/28/24 Time Last Intake of Fluids: 20:00 Date Last Intake of Solids: 09/28/24 Time Last Intake of Solids: 11:00 Past Medical History Medical History Hx of migraines as teenager Kidney stone IUD (intrauterine device) in place History of hypothyroidism not for last 8 years (~2015, with ) Hypertension Depression Past Family History Family History Father Alcoholism Grandmother (Maternal) Diabetes Grandfather (Paternal) Cancer Grandmother (Paternal) Cancer Grandfather (Maternal) Cancer Uncle Cancer Colorectal cancer Denies family history of Ovarian cancer Prostate cancer Myocardial infarction Breast cancer Past Surgical History Surgical History S/P cystoscopy with ureteral stent placement H/O oral surgery early 20's>wisdom teeeth H/O section x2 Previous delivery affecting duplicate Social History Smoking Status: Never smoker Do You Dip or Chew Tobacco: No Hx Alcohol Use: No (drink occasionally) Alcohol type: wine and hard liquor alcohol intake frequency: other Hx Substance Use: Yes substance use type: marijuana Substance Use Type Other:: has marijuana card Last Used Substance Other:: over a month ago Physical Exam Vital Signs Last Vital Signs Temp 37.0 C 09/29/24 11:08 Pulse 97 H 09/29/24 11:08 Resp 20 09/29/24 11:08 BP 128/86 09/29/24 11:08 Pulse Ox 98 09/29/24 11:08 O2 Del Method Room Air 09/29/24 11:08 Testing Laboratory Results 09/29/24 07:40 09/29/24 07:40 PT 10.3 Seconds (9.0-12.0) 09/28/24 18:15 INR 0.9 (0.9-1.1) 09/28/24 18:15
--- NOTE | 2024-09-29 12:17 | Operative Report ---
PG Post Operative Report Pre & Post Diagnosis Operation Date: 09/29/24 09:30 Pre-Op Diagnosis: Nephrolithiasis; Right Ureteral Stone Post-Op Diagnosis: Nephrolithiasis; Right Ureteral Stone I identified the patient and participated in the time-out.: Yes Procedure Operation Date: 09/29/24 09:30 Actual Procedures p Cystoscopy; Ureteroscopy; Laser Lithotripsy with Basket Stone Extraction; Right Ureteral Stent Placement(Right) - Jerome Valadez MD Surgeon Jerome Valadez MD Senior [employer] Consultant none Estimated Blood Loss 0 Findings Consistent with Post-Op Diagnosis Specimens none Description of Procedure The patient was identified in the preoperative holding area, appropriate informed consents were reviewed and completed and the patient was transferred to the operative suite. Upon arrival, appropriate antibiotics and anesthesia were administered and the patient was placed in dorsal lithotomy position and prepped and draped in sterile fashion. To begin the case I passed a 21 Serbian cystoscope with 30 degree lens. Inspection revealed a healthy appearing bladder. There was no significant signs of cystitis or infection, the urine was clear. I irrigated the bladder and I then attempted to pass a wire up the right ureter. This advanced to the level of the obstruction and did not advance beyond it. After numerous attempts, I elected to utilize a semirigid ureteroscope and advanced it and immediately encountered swelling and edema of the ureter. The stone was not readily visible but on further exploration I was able to navigate the scope and identify a stone which was impacted into the wall of the ureter and causing the edema to occlude the lumen. I was able to advance a wire beyond it into the kidney. I then withdrew the scope and reentered next to the wire utilizing a 200 m laser fiber I was able to begin treatment of the stone and ultimately free it from inside of impaction. I broke the stone into several pieces and used a basket to extract the fragments. I inspected the impaction site several times and I felt comfortable that the stone had been entirely removed. I proceeded to place a 6 Serbian by 24 cm stent. I will plan to obtain a CTA early next week and then remove her stent. This can occur as an outpatient in our office. I attest to the content of the Intraoperative Record and any orders documented therein. Any exceptions are noted below.
[2024-09-29] MEDS: DIATRIZOATE MEGLUMINE 30% 100ML VIAL INSTIL ONE (14:37)
--- NOTE | 2024-09-29 14:48 | Billing Data ---
Date of Service September 29, 2024 Coding Level of Care Code 71435 SUB INP/OBS CARE
[2024-09-29] MEDS: cefTRIAXone SODIUM 2,000 MG/50 ML BAG IV SCH (20:55)
--- NOTE | 2024-09-29 21:56 | Billing Data ---
Date of Service September 29, 2024 Coding Level of Care Code 97206 INT INP/OBS CARE
--- NOTE | 2024-09-30 06:48 | Hospitalist Progress Note ---
Date of Service September 30, 2024 Assessment & Plan (1) Right ureteral stone: (2) Urinary tract infection: (3) Hydronephrosis with obstructing calculus: (4) Depression: (5) Hypertension: Plan Yaneth is a 38F w/ PMH of nephrolithiasis, hirsutism, depression, HTN, and hypothyroidism who presented to the emergency department 09/28/24 for evaluation of right flank pain. Patient admitted for urologic intervention planned 09/29/24. R Nephrolithiasis Hydronephrosis/Hydroureter - Original lithotripsy w/ stenting 09/04, repeat lithotripsy w/ stenting 09/18 - SIRS + w/ Urinary source: Leukocytosis, tachycardia, fever at home - Urinalysis w/ culture pending - Abx received prior to BC, but ordered anyway given sepsis on presentation Clinically relevant if positive, but does not rule out bacteremia at presentation if negative - CTAP w/ right hydronephrosis, hydroureter, and irregular 9 x 6 mm calculus 3 cm from the UVJ - Continue Ceftriaxone 2g Q24h - Continue IVFs, increased to maintenance IVF rate - Continue Flomax daily for expulsive therapy - Tylenol, Zofran, Morphine PRN - Urology consultation, appreciate recommendations Pt to have Cystoscopy and other necessary interventions by Dr. Valadez on 09/29/2024 Chronic Conditions - HTN: BP stable, PO meds held - Depression: PO meds held while NPO, restart post-procedure - Hypothyroidism: No active home meds Code: Full DVT: SCD Diet: NPO Dispo: Urology intervention * Restart PO home medications post-procedure Admission and Anticipated Discharge Date Admission Date: September 28, 2024 Subjective Pt is a 38 yo female with recent bouts with nephrolithiasis and s/p lithotripsy w/ stenting on 09/04 and 09/18. Pt presented to ED with flank pain, fever, and nausea. Nephrolithiasis noted on CTAP. Urology consulted and pt is scheduled for cystoscopy later this morning. This morning, pt reports she continues with right flank pain, but better controlled than yesterday when in ED. She denies nausea, vomiting, fevers, SOB, or CP. Review of Systems Review of Systems: As per HPI Physical Exam Physical Exam: Gen: NAD, uncomfortable, interactive HEENT: Supple, no LAD, no thyromegaly, no JVD Resp:Non-labored, no wheezing/rhonchi/rales, CTAB CV:tachycardic, regular rhythm, normal S1/S2, no M/R/G Abd: Soft, non-distended, right flank TTP/suprapubic TPP, normoactive bowels, no masses, R CVA Tenderness Extr: 2+ dp bilaterally, no edema Skin: No rashes lesions or erythema Results & Data Results & Data Vital Signs (Past 12 Hours) Vital Signs Temp Pulse Pulse Pulse Resp BP Pulse Ox 09/30/24 03:40 36.9 C 87 16 133/80 95 09/29/24 23:17 36.7 C 85 18 114/65 95 09/29/24 21:45 94 H 09/29/24 19:29 36.8 C 96 H 18 122/82 93 O2 Del Method 09/30/24 03:40 Room Air 09/29/24 23:17 Room Air 09/29/24 21:45 09/29/24 19:29 Room Air (2) Urinary tract infection Hematuria presence: with hematuria Urinary tract infection type: acute cystitis Qualified Code(s): N30.01 - Acute cystitis with hematuria
[2024-09-30 07:36] LABS: Hematocrit (blood only) 34.8 % (37.0-47.0); Hemoglobin 11.8 g/dl (12.0-16.0); Mean Corpuscular Hgb Conc 33.9 g/dL (32.0-36.0); Mean Corpuscular Volume 88.5 fL (80.0-100.0); Mean Platelet Volume 10.7 fL (9.4-12.4); Platelet Count 171 K/uL (130-400); RDW Coefficient of Variation 12.4 % (11.5-14.5); RDW Standard Deviation 40.6 fL (36.4-46.3); Red Blood Count 3.93 M/uL (4.20-5.40); White Blood Count 15.17 K/ul (4.8-10.8)
--- NOTE | 2024-09-30 07:36 | Fluoroscopy Report ---
FL retrograde includes kub CLINICAL HISTORY: CYSTO COMPARISON STUDY: CT of the abdomen and pelvis September 28, 2024. FLUOROSCOPIC IMAGES: 1 FINDINGS: Fluoroscopy was provided during cystoscopy and right ureteral stent placement. Proximal asp ect of the stent is within the right renal pelvis. IMPRESSION: Fluoroscopy provided cystoscopy and right ureteral stent placement. ACT 112: Negative or not required by law. Electronically signed by: Gonsalo Jones M.D. 09/30/2024 7:34 AM
[2024-09-30 07:54] LABS: Albumin Globulin Ratio 1.1 (0.9-2); Albumin Level 3.3 gm/dl (3.4-5.0); BUN Creatinine Ratio 18.1 (10-20); Bilirubin,Total 0.3 mg/dl (0.2-1.0); Calcium 8.4 mg/dl (8.6-10.3); Creatinine Clr Calc Pharmacy 97.9 ml/min; Globulin 2.9 gm/dl (2.5-4.0); Potassium 4.3 mmol/L (3.5-5.1); Total Protein 6.2 gm/dl (6.0-8.3)
--- NOTE | 2024-09-30 10:26 | Urology Progress Note ---
Date of Service September 30, 2024 Assessment & Plan (1) Right ureteral stone: Plan Status post ureteroscopy, laser lithotripsy/stone extraction and stent placement yesterday Tolerated the procedure well and appears to be improved this morning I think she is likely stable for discharge home Uncertain that she truly is infected but I think it would be prudent to cover her with antibiotics as a precaution given her fevers on arrival we will arrange outpt imaging/stent removal Admission and Anticipated Discharge Date Admission Date: September 28, 2024 Subjective Feeling better today Considerably improved from admission Some discomfort with the stent but in expected range Afebrile, hemodynamically stable Results & Data Vital Signs (Past 12 Hours) Vital Signs Temp Pulse Pulse Pulse Resp BP Pulse Ox 09/30/24 07:13 36.6 C 81 16 132/88 97 09/30/24 07:08 93 H 09/30/24 03:40 36.9 C 87 16 133/80 95 09/29/24 23:17 36.7 C 85 18 114/65 95 O2 Del Method 09/30/24 07:13 Room Air 09/30/24 07:08 09/30/24 03:40 Room Air 09/29/24 23:17 Room Air PG Care Time/CCT Total # of Minutes Spent Total Time Spent with Patient: Total time spent is greater than 50% in coordination of care (as documented) at patient's floor/unit and/or counseling patient: Coding Level of Care Code 52164 SUB INP/OBS CARE /25MIN Diagnoses Right ureteral stone N20.1
[2024-09-30 10:49] VITALS: BP 116/76; PULSE 100; RESP 15; TEMP 98.1; O2SAT 96
--- NOTE | 2024-09-30 11:00 | Discharge Summary ---
Date of Service September 30, 2024 Admission HPI Per Admitting Provider Yaneth is a 38F w/ PMH of nephrolithiasis, hirsutism, depression, HTN, and hypothyroidism who presented to the emergency department 09/28/24 for evaluation of right flank pain. Patient notes that she started having right sided flank and back pain yesterday w/ associated nausea and no emesis. Throughout the day today, patients's nausea progressed and she notes the development of a fever of 102+, thus she came into the ED. She has been taking ibuprofen PRN w/o benefit. Patient was recently treated for right nephrolithiasis w/ hydronephrosis and hydroureter by Dr. Valadez on 09/04/24 with lithotripsy and stent placement. She was discharged with Ciprofloxacin 500 mg BID, Flomax, and Oxybutynin. Repeat ureteroscopy and lithotripsy with stent exchange was performed 09/18/24, but the patient notes th e stent dislodged 09/19/24. She notes that over the last 2-3 days the pain has become progressively worse and she is now experiencing fatigue, chills, body aches, and dizziness. She denies hematuria and dysuria and continues to urinate regularly. No changes in bowel movements. She continues to hydrate as normal, but has had a poor appetite. While the pain in her flank has been ongoing, she does note that the pain has been radiating into her abdomen/suprapubic area over since yesterday. Principal Diagnosis Right nephrolithiasis Discharge Exam Gen: NAD, uncomfortable, interactive HEENT: Supple, no LAD, no thyromegaly, no JVD Resp:Non-labored, no wheezing/rhonchi/rales, CTAB CV:tachycardic, regular rhythm, normal S1/S2, no M/R/G Abd: Soft, non-distended, right flank TTP, normoactive bowels, no masses Extr: 2+ dp bilaterally, no edema Skin: No rashes lesions or erythema Discharge Data Allergies Allergy/AdvReac Type Severity Reaction Status Date / Time hydrochlorothiazide AdvReac Intermediate Photosensit Verified 09/18/24 11:18 ivity Consultations 09/28/24 21:46 ED Decision to Admit Stat 09/28/24 23:06 Consult Urology Routine Procedures Performed Operation Date: 09/29/24 09:30 Actual Procedures p Cystoscopy; Ureteroscopy; Laser Lithotripsy with Basket Stone Extraction; Right Ureteral Stent Placement(Right) - Jerome Valadez MD Ordered Studies 09/28/24 18:26 CT abd pelvis IV con only Stat 09/29/24 [place] retrograde includes kub Routine Hospital Course (1) Right ureteral stone: (2) Urinary tract infection: (3) Hydronephrosis with obstructing calculus: (4) Depression: (5) Hypertension: Plan Yaneth is a 38F w/ PMH of nephrolithiasis, hirsutism, depression, HTN, and hypothyroidism who presented to the emergency department 09/28/24 for evaluation of right flank pain. Patient admitted for urologic intervention planned 09/29/24. R Nephrolithiasis Hydronephrosis/Hydroureter - Original lithotripsy w/ stenting 09/04, repeat lithotripsy w/ stenting 09/18 - Urinalysis w/ culture pending - IV Abx given prior to uteroscopy, Ceftriaxone 2g Q24h. Changed to PO Cefdinir 300mg BID x 3 days for home - CTAP w/ right hydronephrosis, hydroureter, and irregular 9 x 6 mm calculus 3 cm from the UVJ - Tylenol, Zofran PRN - Urology consultation, appreciate recommendations s/p Uretoscopy, laser lithotripsy, and ureteral stent placement by Dr. Valadez on 09/29/2024. Follow up CTA early next week and follow up in his office Chronic Conditions - HTN: BP stable, PO meds held - Depression: PO meds held while NPO, restart post-procedure - Hypothyroidism: No active home meds Code: Full DVT: SCD Diet: regular Dispo: med-surg Total Time Total Time Spent Total Time Spent (In Minutes): As per attending physician's attestation. Discharge Plan Discharge Items Patient Disposition: Home - Self-Care Reason For Visit: NEPHROLITHIASIS/HYDRONEPHROSIS Discharge Diagnosis: s/p uteroscopy, laser lithotripsy and stent placement Condition on Discharge: Good Activity: Resume your previous activity Non-emergency contact: Primary Care Provider Call non-emergency contact if: your symptoms worsen Follow-up/Referrals: Jerome Jeffrey MD [Primary Care Provider] - Diet: Regular Addtl Attending Provider Instructions: You were admitted for kidney infection and stone on your right ureter. After undergoing procedure to remove stone and place stent in ureter, it appears the infection is likely resolving. A prescription for Cefdinir 300mg, an antibiotic will be sent to your pharmacy. You will take this twice a day for 3 days. You can take Tylenol or Motrin as needed for pain. Please be sure to stay hydrated, drinking 80 oz of fluid daily. You will also need to have an abdominal CT early next week and schedule a follow up with Dr. Valadez, urologist. Schedule a follow up with your primary care physician in the next 5-7 days. Pending Studies at Discharge: No Stand-Alone Forms: My [facility] [employer], Smoking Cessation Medications and DC Order Prescriptions: New cefdinir 300 mg capsule 300 mg PO BID 3 Days Qty: 6 0RF Continued cetirizine [Zyrtec] 10 mg tablet 10 mg PO HS levonorgestrel 20 mcg/24 hours (5 yrs) 52 mg intrauterine device 1 device IU UD Qty: 1 Patient Comments: inserted 04/26/19 CBD 25 mg PO HS PRN (Reason: Pain) Patient Comments: approx 1 month ago omega-3 acid ethyl esters 2,500 mg PO QAM dextroamphetamine-amphetamine [Mydayis] 37.5 mg capsule, ER multiphase 24 hr 37.5 mg PO QAM cholecalciferol (vitamin D3) 25 mcg (1,000 unit) Capsule 25 mcg PO QAM Qty: 30 0RF phenazopyridine [Pyridium] 100 mg Tablet 100 mg PO TID PRN (Reason: Urinary symptoms) Qty: 60 0RF ketorolac 10 mg Tablet 10 mg PO Q6H PRN (Reason: Pain) Rx Instructions: maximum total duration of 5 days from all oral, intranasal, or parenteral formulations lisinopril 5 mg tablet 5 mg PO HS loteprednol etabonate 0.5 % drops,suspension 1 drp OPB BID duloxetine 60 mg Capsule,Delayed Release(Dr/Ec) 60 mg PO QAM Xiidra 5 % Dropperette 1 drp OPHTHALMIC (EYE) BID Rx Instructions: administer approximately 12 hours apart tamsulosin [Flomax] 0.4 mg capsule 0.4 mg PO QAM Discontinued ciprofloxacin HCl [Cipro] 500 mg tablet 500 mg PO BID Qty: 6 0RF Discharge Orders: Discharge Order (Routine); Ordered 09/30/24 Ordered By: Keri Dial/Other Patient Handouts: Preventing Kidney Stones Admission Data Admit Date/Time: 09/28/24 22:09 Attending Provider: Jaun Kapadia Admit Provider: Viridiana Taylor Primary Care Provider: Jerome Jeffrey Other Providers: Glenroy Chatman; Jerome Valadez Other Interventions: Discharge Summary Assessment (RN) Last Done: 09/30/24 12:15 Supervising Physician Co-Signing Physician Notes I personally examined the patient and verified all garcia points of history and exam, discussed case, and agree with decision making with Dr Sears feeling better feels up to going home, seen at same time as urology - input greatly appreciated vitals noted nad heent nc at mmm breathing unlabored no accessory muscles good effort skin no rashes no pallor or icterus ureterolithiasis - now s/p cysto/stenting - safe/stable for home - f/u w urology. sepsis appearance on admission with WBC and HR - but after discussion w urology - intraop looked reassuring from sepsis standpoint - SIRS possibly all due to physiologic stress - at the same time, will cover w abx given overall appearance. otherwise as above Resident Activity Tracking Resident Involvement: Resident Care Provided Care Provided: Adult Hospital Medicine
[2024-09-30] MEDS: ACETAMINOPHEN 325 MG TAB PO PRN (11:19)
--- NOTE | 2024-09-30 12:40 | Billing Data ---
Date of Service September 30, 2024 Coding Level of Care Code 48986 IN/OBS DISCH 30 MIN/LESS
--- NOTE | 2024-10-01 14:04 | Coding Query ---
CODING QUERY To promote full compliance with coding requirements relating to patient care, provider participation is requested in all cases of medical records coder uncertainty. Please assist us with the question(s) below: Clinical Indicators: History and Physical: * Throughout the day today, patients's nausea progressed and she notes the development of a fever of 102+, thus she came into the ED. * she is now experiencing fatigue, chills, body aches, and dizziness * Vitals; Temp - 37; Pulse - 114; Resp - 16; BP - 133/76; Pulse Ox - 97 * From the ED received the following: Normal saline 1 L bolus, Toradol 10 mg IV, Zofran 4 mg IV, and ceftriaxone 2 g IV Hospitalist Note 09/29: * (1) Right ureteral stone: * (2) Urinary tract infection: * (3) Hydronephrosis with obstructing calculus * sepsis POA Operative Note: * Cystoscopy; Ureteroscopy; Laser Lithotripsy with Basket Stone Extraction; Right Ureteral Stent Placement(Right) Discharge Summary: * sepsis appearance on admission with WBC and HR - but after discussion w urology - intraop looked reassuring from sepsis standpoint - SIRS possibly all due to physiologic stress - at the same time, will cover w abx given overall appearance. Coding Question(s): Are you able to provide further clarification of the diagnosis of associated with the clinical indicators above as: ( ) Confirmed or possible sepsis (x ) Confirmed or possible SIRS of noninfectious origin w/o organ dysfunction ( ) Other: (please specify) ( ) Unable to determine. Thank you Maral Bonilla Principal Diagnosis: "that condition established after study, to be chiefly responsible for occasioning the admission of the patient to the hospital for care." Co-Existing Principal Diagnosis: "when two or more diagnoses equally meet the criteria for principal diagnosis as determined by the circumstances of admission, diagnostic work up, and/or therapy provided, and the Alphabetic Index, Tabular List, or another coding guideline does not provide sequencing direction, any one of the diagnoses may be sequenced first." "When the physician has documented what appears to be a current diagnosis in the body of the record, but has not included the diagnosis in the final diagnostic statement, the physician should be asked whether the diagnosis should be added." (Source Coding Clinic 2 QTR90. p3-4) SHANNAN
== END 2024-09-30 14:47 | disposition home or self-care (01) | DRG 660 ==
LOC: ED 17:55 → 2N 22:09 → SUATTDRO 22:09 → 2N 22:41